=== PATIENT | female | born 1935 | race Caucasian/White ===

== ENCOUNTER 2019-08-28 11:49 | Outpatient (CLI) | payer MEDICARE, SELFPAY ==
[2019-08-28 12:29] LABS: Hematocrit 33.1 % (37.0-47.0); Hemoglobin 10.2 g/dL (12.0-15.0); Mean Corpuscular HGB Conc 30.8 g/dl (32-36); Mean Corpuscular Hemoglobin 28.3 pg (26-34); Mean Corpuscular Volume 91.9 fl (80-100); Mean Platelet Volume 10.2 fl (7.4-10.4); Platelet Count Result 283 k/mm3 (150-375); Red Cell Distribution Width 25.2 % (11.5-14.5); White Blood Count 8.5 K/mm3 (4.5-10.0)
[2019-08-28 12:33] LABS: Add Urine Microscopic? YES; Appearance Urine Clear (Clear); Bacteria Urine Trace /hpf; Bilirubin Urine Negative (Negative); Blood Urine Negative (Negative); Color Urine Yellow (Yellow); Glucose Urine UA Negative (Negative); Ketones Urine Negative (Negative); Leukocyte Esterase Ur Trace LEU/UL (NEGATIVE); Mucus Urine Rare /lpf; Nitrate Urine Negative (Negative); Protein Urine Negative (Negative); Specific Grav Ur 1.011 (1.001-1.035); Squamous Epithelial Cell Urine Many /hpf (Few); Urobilinogen Urine Negative mg/dL (<2.0)
[2019-08-28 12:48] LABS: Alanine Aminotransferase 15 U/L (4-35); Albumin Level 4.2 g/dL (3.5-5.1); Alkaline Phosphatase 111 U/L (38-126); Aspartate Amino Transferase 30 U/L (14-36); Bilirubin,Total 0.9 mg/dL (0.2-1.3); Blood Urea Nitrogen 47 mg/dL (7-17); Calcium 8.4 mg/dL (8.4-10.2); Carbon Dioxide 28 mmol/L (22-30); Chloride 98 mmol/L (98-107); Estimated Glomerular Filt Rate 24; Glucose 121 mg/dL (65-105); Potassium 4.3 mmol/L (3.4-5.0); Sodium 140 mmol/L (137-145)
[2019-08-28 12:55] LABS: NT Pro B Type Natriuretic Pept 7210 PG/ML (5-100)
[2019-08-28 15:27] LABS: Hemoglobin A1C 7.1 % (<5.7)
== END 2019-08-28 11:50 | disposition home or self-care (01) ==
PROVIDERS: PCP Internal Medicine; Visit Provider Internal Medicine
DX: R53.83 Other fatigue (principal); I50.9 Heart failure, unspecified; E11.9 Type 2 diabetes mellitus without complications; M25.519 Pain in unspecified shoulder; N39.0 Urinary tract infection, site not specified
CPT/HCPCS: 36415; 80053; 81001; 83036; 83880; 84443; 85027

== ENCOUNTER 2019-10-19 13:25 | Outpatient (CLI) | payer MEDICARE, SELFPAY ==
[2019-10-19 14:21] LABS: Blood Urea Nitrogen 87 mg/dL (7-17); Calcium 9.1 mg/dL (8.4-10.2); Carbon Dioxide 27 mmol/L (22-30); Chloride 99 mmol/L (98-107); Estimated Glomerular Filt Rate 14; Glucose 127 mg/dL (65-105); Potassium 5.6 mmol/L (3.4-5.0); Sodium 138 mmol/L (137-145)
== END 2019-10-19 13:26 | disposition home or self-care (01) ==
LOC: ANHLAB 13:33
PROVIDERS: PCP Internal Medicine; Visit Provider Internal Medicine Cardiovascular Disease
DX: I50.22 Chronic systolic (congestive) heart failure (principal); I42.8 Other cardiomyopathies
CPT/HCPCS: 36415; 80048

== ENCOUNTER 2019-10-28 10:54 | Outpatient (CLI) | payer MEDICARE, SELFPAY ==
[2019-10-28 11:27] LABS: Blood Urea Nitrogen 64 mg/dL (7-17); Calcium 8.4 mg/dL (8.4-10.2); Carbon Dioxide 31 mmol/L (22-30); Chloride 100 mmol/L (98-107); Estimated Glomerular Filt Rate 15; Glucose 136 mg/dL (65-105); Potassium 4.3 mmol/L (3.4-5.0); Sodium 139 mmol/L (137-145)
== END 2019-10-28 10:55 | disposition home or self-care (01) ==
PROVIDERS: PCP Internal Medicine; Visit Provider Nurse Practitioner Adult Health
DX: I50.22 Chronic systolic (congestive) heart failure (principal); E11.22 Type 2 diabetes mellitus with diabetic chronic kidney disease; N18.3 Chronic kidney disease, stage 3 (moderate)
CPT/HCPCS: 36415; 80048

== ENCOUNTER 2019-11-09 11:25 | Inpatient (IN) | payer MEDICARE, SELFPAY ==
--- NOTE | ~2019-11-09 | XR_ITS ---
XR abdomen/kub 1V DATE: 11/14/2019 19:30 INDICATION: Abdominal pain TECHNIQUE: Portable supine AP views on 11/14/2019 at 1924 hours COMPARISON: 11/12/2019 KUB 11/11/2019 small bowel follow-through FINDINGS: There is minimal residual contrast material in some descending and sigmoid colon diverticul a and in the rectum. No bowel dilatation is evident. The psoas shadows are intact. No visceromegaly is detected. Abdominal aortic calcification and iliac arterial calcifications. IMPRESSION: Nonspecific abdomen Reviewed, dictated and finalized at [facility]. Reviewed, dictated and finalized at location [facility]. IMPRESSION: Nonspecific abdomen
--- NOTE | ~2019-11-09 | CT_ITS ---
EXAMINATION: CT abdomen pelvis wo con DATE: 11/09/2019 12:17 INDICATION: Abdominal pain, nausea, vomiting. History of bowel obstruction. TECHNIQUE: Computed tomography (CT) of the abdomen and pelvis was performed without intravenous contr ast. Automated exposure control and iterative reconstruction technique were employed. Exam dose: 713 .98 mGy-cm total exam DLP. COMPARISON: 05/25/2019 CT abdomen pelvis noncontrast examination FINDINGS: Cardiomegaly. No pericardial effusion. Pacemaker leads are noted in the coronary sinus and right atrium and ventricle. Moderate right and small left pleural effusions. There are mild bibasilar infiltrates and/or atelectasis. Sludge and/or stones in the dependent aspect of the gallbladder. Gallbladder wall thickness appears w ithin normal upper limits normal range. There is surface nodularity of the liver, consistent with cirrhosis. No hepatic, splenic, pancreatic, and adrenal space-occupying mass lesion is evident. There is an approximately 2.6 cm exophytic proba ble left renal cyst. Another 12 mm partially exophytic left renal cyst is noted. Probable 6 mm right renal cyst. Additional cysts are not excluded on this limited noncontrast examination. There is surfa ce nodularity of both kidneys. Approximately 2 small nonobstructing upper pole left renal calcified s tones. No ureteral calculus or hydroureteronephrosis is evident. The urinary bladder appears unremark able. There is extensive atherosclerotic calcification of the abdominal aorta and both renal arteries as we ll as some mesenteric and celiac artery calcifications, iliac and femoral artery calcifications. Mild diverticulosis of the left colon; no CT evidence of diverticulitis. There are air-fluid levels of the stomach and numerous small bowel air-fluid levels as well as mild s mall bowel dilatation up to approximately 3.1 mm diameter into the distal small bowel. There is fecal ized content of the distal small bowel proximal to the likely chronic partial small bowel obstruction . The distal and terminal ileum however are decompressed. Findings suggest partial distal small bowel obstruction. No evidence of intraperitoneal free air. Diffuse idiopathic skeletal hyperostosis of the thoracic spine. There is degenerative disease of lumb ar spine, most pronounced at L5-S1, moderately prominent at L3-4. There is degenerative change at the apophyseal joints with associated grade 1 anterolisthesis at L4-5. IMPRESSION: Likely chronic partial distal small bowel obstruction Sludge and/or stones in the gallbladder is sclerosis Renal cysts Mild diverticulosis of left colon Reviewed, dictated and finalized at [facility]. Reviewed, dictated and finalized at location [facility].
--- NOTE | ~2019-11-09 | XR_ITS ---
XR small bowel follow through DATE: 11/11/2019 11:55 INDICATION: Partial small bowel obstruction TECHNIQUE: Serial images of the abdomen after administration of barium through existing NG tube 4 minutes fluoroscopy time DAP: 33 14 images COMPARISON: 11/09/[address] abdomen pelvis FINDINGS: Contrast material reaches the colon by one hour 30 minutes. Spot radiograph of the terminal ileum reveal no abnormality. The proximal and distal small bowel is of normal caliber. There is mild relative dilatation of the mid small bowel which may be due to mild partial obstruction. No intralum inal mass lesion or ulceration or diverticula of the small bowel is evident. No mucosal fold thickeni ng is evident. IMPRESSION: Mild nonspecific mid to distal partial small bowel obstruction Reviewed, dictated and finalized at [facility]. Reviewed, dictated and finalized at location [facility].
--- NOTE | ~2019-11-09 | XR_ITS ---
EXAMINATION: XR chest 2V DATE: 11/12/2019 10:40 INDICATION: Shortness of breath and hypoxia TECHNIQUE: AP and lateral views of the chest are obtained. COMPARISON: 05/06/2019 FINDINGS: There are airspace opacities of the lower lobes. Small pleural effusions are present. Stabl e cardiomegaly is noted. There is no pneumothorax. A triple lead cardiac pacemaker of the left chest wall ends with leads in expected locations. There are healed bilateral proximal humerus fractures. A small amount of enteric contrast material is seen in the bowel. IMPRESSION: 1. Airspace opacities of the lower lobes, consistent with atelectasis versus pneumonia. 2. Small pleural effusions. 3. Cardiomegaly. Reviewed, dictated and finalized at location [facility]. IMPRESSION: 1. Airspace opacities of the lower lobes, consistent with atelectasis versus pn eumonia. 2. Small pleural effusions. 3. Cardiomegaly.
--- NOTE | ~2019-11-09 | XR_ITS ---
EXAMINATION: XR abdomen obstructive series DATE: 11/12/2019 13:14 INDICATION: Recent small bowel obstruction presenting with recurrent abdominal bloating TECHNIQUE: Frontal supine and upright views of the abdomen were obtained. COMPARISON: 11/11/2019 FINDINGS: Residual oral contrast material is seen scattered throughout the normal caliber colon. Small amount o f gas within ana few normal caliber loops of small bowel in the midabdomen. No dilated gas-filled lo ops of bowel. No free intraperitoneal gas. Interval increase in airspace opacities in the bilateral l ower lung zones. Cardiomegaly. Three lead pacemaker/AICD seen with leads projecting over the expected locations of the right atrial appendage, apex of the right ventricle and overlying the left ventricl e likely having traversed the coronary sinus. Mild lumbar levocurvature with moderate spondylosis. IMPRESSION: 1. No free intraperitoneal gas or dilated gas-filled loops of bowel to suggest obstruction. 2. Increasing opacities in the bilateral lower lung zones consistent with small bilateral pleural eff usions and associated atelectasis and/or pneumonia. Reviewed, dictated and finalized at location A. IMPRESSION: 1. No free intraperitoneal gas or dilated gas-filled loops of bowel to suggest obstruction. 2. Increasing opacities in the bilateral lower lung zones consistent with small bilateral pleural effusions and associated atelectasis and/or pneumonia.
--- NOTE | ~2019-11-09 | XR_ITS ---
EXAMINATION: XR abdomen obstructive series DATE: 11/15/2019 08:15 INDICATION: Abdominal distention TECHNIQUE: Upright and supine views of the abdomen were obtained. COMPARISON: 11/14/2019 FINDINGS: Enteric contrast material is seen in the rectum and also opacifies several colonic divertic barron in the sigmoid colon. There is no free intraperitoneal gas. No dilated loops of bowel are seen. T here are airspace opacities of the visualized lung bases. Cardiomegaly is noted. There is a triple le ad pacemaker. IMPRESSION: 1. Nonobstructive bowel gas pattern. 2. Bibasilar airspace opacities, consistent with atelectasis and/or pneumonia. Reviewed, dictated and finalized at location A.
--- NOTE | ~2019-11-09 | XR_ITS ---
EXAMINATION: XR abdomen obstructive series DATE: 11/10/2019 06:17 INDICATION: Small bowel obstruction TECHNIQUE: Frontal supine and upright views of the abdomen were obtained. COMPARISON: 11/09/2019 FINDINGS: Nasogastric tube tip in proximal side port in the body of the stomach. Relative paucity of bowel gas with small amount of gas seen within a couple nondilated loops of small bowel in the midabdomen. No f ree intraperitoneal gas. Small right pleural effusion. Mild atelectasis at the lung bases. Cardiomega ly. Three lead pacemaker/AICD seen with leads projecting over the expected locations of the right atr ial appendage, apex of the right ventricle and overlying the left ventricle likely having traversed t he coronary sinus. Mild lumbar levocurvature with moderate spondylosis. IMPRESSION: 1. No dilated gas-filled loops of bowel to suggest obstruction although sensitivity is decreased by relative paucity of bowel gas. 2. Small right pleural effusion and mild bibasilar atelectasis. Reviewed, dictated and finalized at location A. IMPRESSION: 1. No dilated gas-filled loops of bowel to suggest obstruction although sensit ivity is decreased by relative paucity of bowel gas. 2. Small right pleural effusion and mild bibasilar atelectasis.
--- NOTE | ~2019-11-09 | XR_ITS ---
EXAMINATION: XR abdomen obstructive series DATE: 11/11/2019 06:06 INDICATION: Partial small bowel obstruction TECHNIQUE: Frontal supine and upright views of the abdomen were obtained. COMPARISON: 11/10/2019 FINDINGS: Nasogastric tube tip in proximal side port in the body of the stomach. No dilated gas-filled loops of bowel. No free intraperitoneal gas. Opacities in the bilateral lower lung zones. Cardiomegaly. Thre e lead pacemaker/AICD seen with leads projecting over the expected locations of the right atrial appe ndage, apex of the right ventricle and overlying the left ventricle likely having traversed the coron gayatri sinus. Mild lumbar levocurvature with mild to moderate spondylosis. IMPRESSION: 1. No free intraperitoneal gas or dilated gas-filled loops of bowel to suggest obstruction. 2. Opacities at the bilateral lower lung zones likely related to small bilateral pleural effusions an d associated atelectasis although pneumonia or mild pulmonary edema not excludable. 3. Cardiomegaly. Reviewed, dictated and finalized at location A. IMPRESSION: 1. No free intraperitoneal gas or dilated gas-filled loops of bowel to suggest obstruction. 2. Opacities at the bilateral lower lung zones likely related to small bilatera l pleural effusions and associated atelectasis although pneumonia or mild pulmo nary edema not excludable. 3. Cardiomegaly.
--- NOTE | ~2019-11-09 | XR_ITS ---
XR abdomen NG/feed tube insert DATE: 11/09/2019 14:08 INDICATION: NG tube placement TECHNIQUE: Portable AP view on 11/09/2019 1408 hours COMPARISON: None FINDINGS: An NG tube is present, the proximal port approximately 1.5 cm distal to the diaphragmatic h iatus, the distal tip of the tube overlying the upper body of the stomach. Triple lead left-sided pacemaker device. Cardiomegaly. Aortic calcification. IMPRESSION: NG tube in the upper body of stomach Reviewed, dictated and finalized at [facility]. Reviewed, dictated and finalized at location A.
--- NOTE | 2019-11-09 11:30 | ED.GENADULT ---
HPI - General Adult General Chief complaint: Nausea/Vomiting/Diarrhea Stated complaint: N/V Time Seen by Provider: 11/09/19 11:30 Source: patient and family History of Present Illness HPI narrative: Patient is an 84-year-old female who presents for evaluation of abdominal pain. Patient reports onset of upper abdominal pain overnight. Pain has been cramping, sharp in nature without radiation to the back or chest. She reports associated nausea, vomiting, no diarrhea. Patient states she did have a soft bowel movement this morning. Patient feels somewhat bloated and distended. She denies fever or chills. No urinary symptoms. No recent sick contacts. No rashes. Patient with history of bowel obstruction past May 2019 for [address] she [address] Dr. Rees for. She never required surgery. They thought the bowel obstruction at that point was due to adhesions. Related Data Home Medications Medication Instructions Recorded Confirmed colchicine 0.6 mg PO DAILY 05/25/19 05/25/19 cyclobenzaprine 10 mg PO HS 05/25/19 05/25/19 escitalopram oxalate 10 mg PO DAILY 05/25/19 05/25/19 febuxostat [Uloric] 80 mg PO DAILY 05/25/19 05/25/19 furosemide 60 mg PO DAILY 05/25/19 05/25/19 gabapentin 300 mg PO TID 05/25/19 05/25/19 montelukast 10 mg PO DAILY 05/25/19 05/25/19 spironolactone 25 mg PO DAILY 05/25/19 05/25/19 trazodone 100 mg PO HS 05/25/19 05/25/19 Allergies Allergy/AdvReac Type Severity Reaction Status Date / Time gadobenic acid Allergy Severe Hives Verified 11/09/19 14:24 [From contrast - MRI] iohexol Allergy Severe Hives Verified 11/09/19 14:24 [From contrast - CT, X-RAY] Penicillins Allergy Severe HIVES Verified 11/09/19 11:55 Sulfa (Sulfonamide Allergy Severe HIVES/RASH/ Verified 11/09/19 11:55 Antibiotics) ITCHY tetanus and diphtheria Allergy Severe Hives Verified 11/09/19 14:25 toxoids Review of Systems Review of Systems: Narrative: CONSTITUTIONAL: Denies fever, chills, or sweats. EYES: Denies visual changes, redness, or discharge. ENT: Denies rhinorrhea, congestion, sore throat, or otalgia. CARDIOVASCULAR: Denies chest pain, palpitations, or edema. RESPIRATORY: Denies cough or dyspnea. GASTROINTESTINAL: Reports abdominal pain, nausea, vomiting GENITOURINARY: Denies dysuria or hematuria. SKIN: Denies rash or itching. MUSCULOSKELETAL: Denies back pain, joint pain, or myalgia. NEUROLOGIC: Denies headache, numbness, or weakness. [facility] Past Medical History Medical History Acoustic neuroma With conductive hearing loss. Anemia of chronic disease Asthma CHF (congestive heart failure) Mixed systolic and diastolic congestive heart failure. Previous ejection fraction of 30 to 35%. Chronic kidney disease, stage 3 Now likely CKD 4. Baseline creatinine appears to be around 2.0. CVA (cerebral vascular accident) In 1989. 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 Hemoglobin A1c is 7.2 today. Kidney stones MRSA (methicillin resistant Staphylococcus aureus) septicemia Obstructive sleep apnea No longer requiring CPAP after losing nearly 150 pounds. Paroxysmal atrial fibrillation Not on long-term anticoagulation. Peripheral neuropathy Psoriasis Suspected sleep apnea Patient refuses sleep study, however. UTI (urinary tract infection) Surgical History Surgical History AICD (automatic cardioverter/defibrillator) present With pulse generator change in March 2016. H/O cardiac catheterization H/O: hysterectomy Vaginal hysterectomy with bladder suspension in 1991. 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 History of cataract surgery History of partial hysterectomy Right adnexal mass removed in her 30's. Hx of cataract surgery S/P excision of acoustic neuroma Left-sided, done in 1990.
[2019-11-09 11:46] VITALS: BP 103/62; PULSE 80; RESP 18; TEMP 36.6; O2SAT 93
[2019-11-09 11:56] LABS: Glucose Point of Care 162 (65-105)
[2019-11-09 11:59] LABS: Basophils Percent Auto 0.3 % (0.2-1.2); Eosinophils Percent Auto 0.3 % (0-4.4); Hematocrit 36.1 % (37.0-47.0); Hemoglobin 11.1 g/dL (12.0-15.0); Immature Granulocyte Absolute 0.05 K/mm3 (0.00-0.031); Immature Granulocyte Percent A 0.5 % (0-0.5); Lymphocytes Absolute Auto 0.64 K/mm3 (0.9-3.2); Lymphocytes Percent Auto 6.8 % (18.3-44.2); Mean Corpuscular HGB Conc 30.7 g/dl (32-36); Mean Corpuscular Hemoglobin 27.9 pg (26-34); Mean Corpuscular Volume 90.7 fl (80-100); Mean Platelet Volume 10.5 fl (7.4-10.4); Monocytes Absolute Auto 0.5 K/mm3 (0.1-0.6); Monocytes Percent Auto 4.9 % (2.6-8.5); Neutrophils Absolute Auto 8.2 K/mm3 (1.3-6.7); Neutrophils Percent Auto 87.2 % (45.5-73.1); Platelet Count Result 242 k/mm3 (150-375); Red Blood Count 3.98 M/mm3 (4.2-5.4); Red Cell Distribution Width 24.6 % (11.5-14.5); White Blood Count 9.4 K/mm3 (4.5-10.0)
[2019-11-09] MEDS: MORPHINE SULFATE 4 MG/ML INJ 2 MG IV PUSH (12:21)
[2019-11-09] MEDS: ONDANSETRON INJ 4 MG/2 ML VIAL IV PUSH ×2 (12:21→18:14)
[2019-11-09 12:24] LABS: Lactic Acid Reflex 1.2 mmol/L (0.7-2.1)
[2019-11-09 12:24] LABS: Alanine Aminotransferase 15 U/L (4-35); Albumin Level 4.5 g/dL (3.5-5.1); Alkaline Phosphatase 114 U/L (38-126); Aspartate Amino Transferase 28 U/L (14-36); Bilirubin,Total 1.2 mg/dL (0.2-1.3); Blood Urea Nitrogen 47 mg/dL (7-17); Calcium 8.9 mg/dL (8.4-10.2); Carbon Dioxide 33 mmol/L (22-30); Chloride 97 mmol/L (98-107); Estimated CRCL calculation 13 ml/min; Estimated Glomerular Filt Rate 18; Glucose 174 mg/dL (65-105); Lipase 25 U/L (23-300); Potassium 4.7 mmol/L (3.4-5.0); Sodium 138 mmol/L (137-145)
[2019-11-09] MEDS: SODIUM CHLORIDE 0.9% IV 500 ML 999 ML IV CONT (12:25)
[2019-11-09 13:03] LABS: Add Urine Microscopic? YES; Appearance Urine Clear (Clear); Bilirubin Urine Negative (Negative); Blood Urine 1+ (Negative); Color Urine Yellow (Yellow); Glucose Urine UA Negative (Negative); Ketones Urine Negative (Negative); Leukocyte Esterase Ur Negative LEU/UL (Negative); Mucus Urine Rare /lpf; Nitrate Urine Negative (Negative); Protein Urine Negative (Negative); RBC Urine 0-2 /hpf (0-2); Specific Grav Ur 1.014 (1.001-1.035); Squamous Epithelial Cell Urine Many /hpf (Few); Urobilinogen Urine Negative mg/dL (<2.0); WBC Urine 0-3 /hpf
[2019-11-09] MEDS: SODIUM CHLORIDE 0.9% IV 1,000 ML 999 ML IV CONT (13:16)
[2019-11-09 13:35] VITALS: O2SAT 100
[2019-11-09] MEDS: LORAZEPAM INJ 2 MG/ML VIAL 0.5 MG IV PUSH (14:50)
[2019-11-09 15:45] VITALS: BP 110/44; PULSE 80; RESP 16; O2SAT 99
[2019-11-09] MEDS: SODIUM CHLORIDE 0.9% IV 1,000 ML 125 ML IV CONT (16:06)
--- NOTE | 2019-11-09 16:12 | PM.CNGS ---
Assessment and Plan Assessment and plan (1) Small bowel obstruction: Code(s): K56.609 - Unspecified intestinal obstruction, unspecified as to partial versus complete obstruction Status: Acute Assessment and Plan: CT scan reviewed and discussed with the patient in detail. She has evidence of a partial small bowel obstruction. She had a similar episode in May of 2019 that resolved with conservative treatment. She does have a history of abdominal surgeries and this is likely caused by adhesions. Due to the patient's age and multiple co-morbidities, she is a high risk surgical candidate. We will plan to continue with conservative treatment at this time to see if this will resolve. Continue NG tube decompression, IV fluids, bowel rest, analgesics, and antiemetics. If this does not improve with conservative measures, then the patient may require exploratory surgery. I discussed the treatment plan with the patient and answered all questions. We will continue to follow the patient with serial abdominal exams and imaging. I discussed the patient's case and plan of care with Dr. Parnell, who will be seeing the patient separately. Thank you for allowing me to see the patient in consultation and we will continue to follow along with you. (2) IDDM (insulin dependent diabetes mellitus): Code(s): E11.9 - Type 2 diabetes mellitus without complications; Z79.4 - custodial (current) use of insulin Status: Chronic (3) Chronic kidney disease, stage 3: Code(s): N18.3 - Chronic kidney disease, stage 3 (moderate) Status: Chronic (4) Anemia of chronic disease: Code(s): D63.8 - Anemia in other chronic diseases classified elsewhere Status: Acute (5) Cirrhosis: Code(s): K74.60 - Unspecified cirrhosis of liver Status: Chronic (6) CHF (congestive heart failure): Code(s): I50.9 - Heart failure, unspecified Status: Chronic (7) Paroxysmal atrial fibrillation: Code(s): I48.0 - Paroxysmal atrial fibrillation Status: Chronic (8) Obstructive sleep apnea: Code(s): G47.33 - Obstructive sleep apnea (adult) (pediatric) Status: Chronic History of Present Illness Consult details Consult date: 11/09/19 Reason for consult: other (Partial small bowel obstruction) Requesting physician: July Langston MD Narrative: This is an 84-year-old female who presented to the emergency room today with complaints of abdominal pain, nausea, and vomiting. She has a history of multiple medical problems including,but not limited to congestive heart failure, chronic kidney disease, insulin-dependent diabetes mellitus, obstructive sleep apnea, asthma, anemia, history of stroke, and atrial fibrillation with no current chronic anticoagulation. She was last admitted in May of 2019 for a small bowel obstruction that was thought to be due to adhesions. She was treated conservatively with NG tube decompression and improved. She had a Gastrografin small bowel follow through on 05/28/19 that showed a normal transit to the colon. The patient was eventually discharged home after advancing on a diet and tolerating. She denies any issues since her discharge until this acute episode. The patient reports her recent symptoms started suddenly last night at bedtime when she developed lower abdominal pain. She then developed nausea and vomiting. She reports that after the vomiting started, her abdominal pain became increasingly more severe and was unrelenting. She reports the abdominal pain also became more generalized over her entire abdomen. She does report that for the past 3 days she has felt very bloated but was not having any other symptoms. The patient reports that due to her unrelenting symptoms, she decided to present to the ED today for further evaluation. CT scan of the abdomen and pelvis showed a distal partial small bowel obstruction, gallbladder sludge without other abnormalities of the gallbladder,
--- NOTE | 2019-11-09 16:16 | ADMGEN ---
This patient, Shelli Pereyra, was admitted to 2 Medical Room 257-01. Patient/family oriented to hospital policies and general routines including ID bracelet, bed and alarms, visiting hours, pain management, procedures, bathroom and other care routines, personal items, smoking policy, room service/diet, and visiting hours. Valuables list has been completed. Information on how to activate the Rapid Response Team has been discussed. Patient/Family are encouraged to report perceived risks to care and to ask questions if they do not understand what they are told or what they should do.
--- NOTE | 2019-11-09 16:46 | PC.NURSE ---
Called and clarified medication list with [facility] and patient's daughter Pili Tomlinson. Patient reports some changes in medications by Dr. Malave, but unable to recall the specifics of the changes.
--- NOTE | 2019-11-09 18:00 | PM.IMHP ---
H&P: HPI History of Present Illness Chief complaint: Abdominal pain, nausea, and vomiting. Narrative: Shelli Pereyra is an 84-year-old female with history of small-bowel obstructions who presented to the emergency department earlier this morning for evaluation of abdominal pain, nausea, and vomiting. She developed sudden onset of abdominal pain in the patient sitter hours today, which she describes as a ?intense? pain mainly in the right lower and mid quadrants. She gives no significant alleviating factors. At the time of my evaluation, she rates her pain 8/10. Not long thereafter, she developed nausea and vomiting and reports that her abdomen was distended ?like a watermelon.? She passed 2 soft stools this morning, and is currently feeling as though she may need to have another bowel movement. Additionally, she mentions feeling a bit short of breath earlier today, which sheassumed was due to the abdominal distension. Imaging today shows evidence of a partial small-bowel obstruction. NG tube has been placed for decompression and she will of course be on bowel rest with IV fluids, antiemetics, and analgesics available as needed. Hopefully this will resolve as her previous obstruction did in May 2019. Review of Systems Review of Systems: Narrative: Twelve systems were reviewed with pertinent positives and negatives as per HPI. No fever, chills, or sweats. No recent cold or flu symptoms. She tells me that she has a chronic cough, which is unchanged. She denies blood in mucus in the stool. No hematemesis. No chest pain. She was short of breath earlier when her abdomen was significantly distended, but that has improved with NG tube placement. She has a history of sleep apnea but loss 150 pounds when she was sick from MRSA septicemia and no longer requires treatment for such. She believes her diabetes is fairly well controlled with a hemoglobin A1c of 7.2% in May 2019. Except as documented, all other systems were reviewed and are negative. [facility] Past Medical History Medical History (Updated 11/09/19 @ 20:15 by Anjali Weiss PA-C) Acoustic neuroma With conductive hearing loss. Anemia of chronic disease Asthma CHF (congestive heart failure) Mixed systolic and diastolic congestive heart failure. Previous ejection fraction of 30 to 35%. Chronic kidney disease, stage 4 (severe) Baseline creatinine varies between 1.90 and 2.90. Cirrhosis CVA (cerebral vascular accident) In 1989. 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 Kidney stones MRSA (methicillin resistant Staphylococcus aureus) septicemia Obstructive sleep apnea No longer requiring CPAP after losing nearly 150 pounds. Paroxysmal atrial fibrillation Not on long-term anticoagulation. Paroxysmal atrial fibrillation Peripheral neuropathy Psoriasis UTI (urinary tract infection) Surgical History Surgical History AICD (automatic cardioverter/defibrillator) present With pulse generator change in March 2016. H/O cardiac catheterization H/O: hysterectomy Vaginal hysterectomy with bladder suspension in 1991. 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 History of cataract surgery History of partial hysterectomy Right adnexal mass removed in her 30's. Hx of cataract surgery S/P excision of acoustic neuroma Left-sided, done in 1990. Family History Family History Father Heart disease Mother Heart disease Sibling Brain tumor Daughter Multiple sclerosis Social History Social History Social History: Mrs. Pereyra is . She lives in [place] with her daughter, Pili, and son-in-law. She designates her daughter, Pili Tomlinson, as her surrogate de
[2019-11-09] MEDS: MORPHINE SULFATE 2 MG/ML INJ IV PUSH (19:43)
[2019-11-09 20:00] VITALS: PULSE 80; RESP 16; O2SAT 96
[2019-11-09 20:54] VITALS: O2SAT 96
[2019-11-09 22:00] VITALS: BP 117/57; PULSE 80; RESP 18; TEMP 36.1; O2SAT 99
[2019-11-09] MEDS: MAGNESIUM HYDROXIDE SUSP 30 ML UDC FEED TUBE (22:06)
[2019-11-10] VITALS (8 sets, daily range): BP systolic 101–115; BP diastolic 42–51; PULSE 78–84; RESP 18–20; TEMP 36.1–36.5; O2SAT 80–97
[2019-11-10 00:01] LABS: Glucose Point of Care 139 (65-105)
[2019-11-10] MEDS: SODIUM CHLORIDE 0.9% IV 1,000 ML 125 ML IV CONT (00:44)
[2019-11-10] MEDS: MORPHINE SULFATE 2 MG/ML INJ IV PUSH ×2 (02:28→09:53)
[2019-11-10 06:29] LABS: Hematocrit 34.5 % (37.0-47.0); Hemoglobin 10.3 g/dL (12.0-15.0); Mean Corpuscular HGB Conc 29.9 g/dl (32-36); Mean Corpuscular Volume 93.8 fl (80-100); Mean Platelet Volume 10.8 fl (7.4-10.4); Platelet Count Result 240 k/mm3 (150-375); Red Blood Count 3.68 M/mm3 (4.2-5.4); Red Cell Distribution Width 24.6 % (11.5-14.5); White Blood Count 10.1 K/mm3 (4.5-10.0)
[2019-11-10 06:37] LABS: Alanine Aminotransferase 12 U/L (4-35); Albumin Level 3.8 g/dL (3.5-5.1); Alkaline Phosphatase 90 U/L (38-126); Aspartate Amino Transferase 22 U/L (14-36); Bilirubin,Total 0.9 mg/dL (0.2-1.3); Blood Urea Nitrogen 45 mg/dL (7-17); Carbon Dioxide 28 mmol/L (22-30); Chloride 103 mmol/L (98-107); Estimated CRCL calculation 16 ml/min; Estimated Glomerular Filt Rate 19; Glucose 148 mg/dL (65-105); Magnesium 2.6 mg/dL (1.6-2.3); Phosphorus 5.8 mg/dL (2.5-4.5); Potassium 4.5 mmol/L (3.4-5.0); Sodium 139 mmol/L (137-145)
[2019-11-10 06:51] LABS: Digoxin 1.5 ng/mL (0.8-2.0)
[2019-11-10] MEDS: ONDANSETRON INJ 4 MG/2 ML VIAL IV PUSH (08:06)
[2019-11-10] MEDS: PANTOPRAZOLE SODIUM IV 40 MG VIAL IV PUSH (08:06)
--- NOTE | 2019-11-10 09:04 | PM.PNGS ---
Progress Note: A&P Assessment and Plan (1) Partial small bowel obstruction: Onset Date: ~11/08/19 Code(s): K56.600 - Partial intestinal obstruction, unspecified as to cause Status: Acute Assessment and Plan: Today's x-ray improved. Will try clamping routine and give patient Dulcolax suppository. If progresses well will consider NG removal tomorrow if x-ray okay. If nausea persists may need to repeat small-bowel follow-through with Gastrografin. (2) Paroxysmal atrial fibrillation: Onset Date: Unknown Code(s): I48.0 - Paroxysmal atrial fibrillation Status: Acute Assessment and Plan: Cardiology following as an outpatient. Patient stated to me today that they are expecting the battery in her pacemaker/AID to run out sometime in the next year. (3) Chronic kidney disease, stage 4 (severe): Onset Date: Unknown Code(s): N18.4 - Chronic kidney disease, stage 4 (severe) Status: Acute Assessment and Plan: Labs being followed (4) Anemia of chronic disease: Onset Date: Unknown Code(s): D63.8 - Anemia in other chronic diseases classified elsewhere Status: Acute Assessment and Plan: Labs being followed (5) IDDM (insulin dependent diabetes mellitus): Onset Date: Unknown Code(s): E11.9 - Type 2 diabetes mellitus without complications; Z79.4 - [facility] (current) use of insulin Status: Chronic Assessment and Plan: Hospitalist service following this problem. Additional Plan Will need most meds IV for today. Hopefully will start diet tomorrow if improves. Subjective Subjective Date/Time Seen: 11/10/19 09:04 Patient in bed when I saw her. Complaining of nausea. States after the nausea its then she gets the mild discomfort in her right mid and upper quadrant of the abdomen. Patient and nurse report no bowel movements overnight. Patient willing to get up and walk but states that she has been weak and using a walker. Review of Systems Constitutional: Constitutional: Reports no additional constitutional complaints ENT: Reports other (Mucous Membranes moist.) Cardiovascular: Cardiovascular: Denies dyspnea Respiratory: Respiratory: Denies pain on inspiration and Denies dyspnea Musculoskeletal: Musculoskeletal: Reports other (No calf swelling or edema) Integumentary/Breasts: Skin/Breast: Reports system reviewed and no additional complaints, except as docu Exam Const: General: cooperative, no acute distress, alert and awake Orientation/consciousness: patient oriented x3 HENMT: Mouth: Yes moist mucous membranes Neck: Neck: normal visual inspection Chest: Chest palpation & inspection: normal inspection of the chest Resp: Effort & Inspection: normal respiratory effort Auscultation: clear to auscultation bilaterally Cardio: Jugular venous distension: no JVD Rate: regular rate Rhythm: regular rhythm GI: Inspection: normal to inspection and scar (Low transverse from previous Rt. oophorectomy) GI Palp: No abdominal tenderness and Yes Soft to palpation Auscultation: normal bowel sounds Rectal Exam: deferred Neuro: General: patient oriented x3 and moves all extremities Speech: normal speech Extrem: General: normal exam except as noted Psych: Mental Status: mental status grossly normal Speech and movement: Normal speech and movement present Affect: normal affect Thought content: Yes Normal thought content present Objective Data Vital Signs Vital Signs: Vital Signs - 24 hr 11/09/19 11:46 11/09/19 13:35 11/09/19 15:45 Temperature 36.6 C Pulse Rate 80 80 Respiratory Rate 18 16 Blood Pressure 103/62 110/44 L Pulse Oximetry 93 100 99 11/09/19 20:00 11/09/19 20:54 11/09/19 22:00 Temperature 36.1 C L Pulse Rate 80 80 Respiratory Rate 16 18 Blood Pressure 117/57 L Pulse Oximetry 96 96 99 11/10/19 05:58 Temperature 36.1 C L Pulse Rate 84 Respiratory Rate 20 Blood Pressure 114
[2019-11-10 09:08] LABS: Glucose Point of Care 147 (65-105)
[2019-11-10] MEDS: MAGNESIUM HYDROXIDE SUSP 30 ML UDC FEED TUBE (09:30)
[2019-11-10] MEDS: BISACODYL 10 MG SUPPOSITORY RECTAL (09:30)
[2019-11-10] MEDS: SODIUM CHLORIDE 0.9% IV 1,000 ML 100 ML IV CONT ×2 (09:30→20:52)
--- NOTE | 2019-11-10 10:24 | PM.IMPN ---
Progress Note: A&P Assessment and Plan (1) Partial small bowel obstruction: Onset Date: ~11/08/19 Code(s): K56.600 - Partial intestinal obstruction, unspecified as to cause Status: Acute Assessment and Plan: History of bowel obstructions in the past, last hospitalization May 2019 improved with conservative therapy. Management per general surgery - appreciate input. She remains NPO today with NG clamping. Continue supportive care with antiemetics and pain control. (2) IDDM (insulin dependent diabetes mellitus): Onset Date: Unknown Code(s): E11.9 - Type 2 diabetes mellitus without complications; Z79.4 - [facility] (current) use of insulin Status: Chronic Assessment and Plan: Hemoglobin A1c was 7.2% in May 2019. Insulin held due to NPO status. Monitor with Accu-Cheks and cover with SSI. (3) Chronic kidney disease, stage 4 (severe): Onset Date: Unknown Code(s): N18.4 - Chronic kidney disease, stage 4 (severe) Status: Chronic Assessment and Plan: Renal function has varied over the last 6 month, appears stable. Continue IV hydration and monitor renal function. Avoid nephrotoxic agents. (4) Paroxysmal atrial fibrillation: Onset Date: Unknown Code(s): I48.0 - Paroxysmal atrial fibrillation Status: Chronic Assessment and Plan: Regular rhythm on auscultation. On digoxin at home which is currently held due to NPO status. With surgery's plan to resume diet possibly tomorrow, will likely be able to reinitiate digoxin therapy tomorrow. Will monitor. Subjective Date/time seen: 11/10/19 10:00 Interval history: Ms. Pereyra is an 84yo F admitted with small bowel obstruction. She tells me this morning she is not feeling well. She feels nauseous this morning with some right-sided abdominal pain. Last BM was yesterday. She denies chest pain, cough, or shortness of breath. Review of Systems Review of Systems: Narrative: Twelve systems were reviewed with pertinent positives and negatives as per HPI. Exam Narrative: Exam Narrative: General: Ill-appearing female resting supine in bed. HEENT: Normocephalic, EOMI, oral mucosa moist. Cardiovascular: Rate and rhythm are regular. Respiratory: Lungs clear to auscultation all navarro. Non-labored breathing. Abdomen: Soft, right-sided tenderness to palpation without guarding, few high pitched bowel sounds. Extremities: Peripheral pulses intact. No edema or erythema. 2 cm callus to plantar aspect right foot. Neuro: No focal neurological deficits appreciated. Speech is clear. Objective Data Vital Signs Vital Signs: Last Vital Signs Temp 97 F L 11/10/19 05:58 Pulse 84 11/10/19 08:00 Resp 20 11/10/19 08:00 BP 114/51 L 11/10/19 05:58 Pulse Ox 97 11/10/19 08:00 Intake/Output Intake/Output: Intake & Output 11/07/19 11/08/19 11/09/19 11/10/19 23:59 23:59 23:59 23:59 Intake Total 1778 1822 Output Total 100 300 Balance 1678 1522 Meds/Results Medications: Active Medications Generic Name Dose Route Start Last Admin Trade Name Freq PRN Reason Stop Dose Admin Bisacodyl 10 mg 11/10/19 09:03 11/10/19 09:30 Dulcolax Suppository RECTAL 10 mg QAM PRN Administration Constipation Dextrose 12.5 gm 11/09/19 20:17 Dextrose 50% Syringe IV PUSH PRN PRN Hypoglycemia Protocol Glucagon 1 mg 11/09/19 20:17 Glucagon For Inj IM PRN PRN Hypoglycemia Protocol Glucose 15 gm 11/09/19 20:17 Glutose 15 PO PRN PRN Hypoglycemia Protocol Sodium Chloride 1,000 mls @ 100 mls/hr 11/09/19 14:20 11/10/19 09:30 Normal Saline Iv IV CONT 100 mls/hr .Q10H ERIKA Administration Dextrose 1,000 mls @ 100 mls/hr 11/09/19 20:17 Dextrose 5% 1,000 Ml IVPB PRN PRN Hypoglycemia
[2019-11-10 11:38] LABS: Glucose Point of Care 138 (65-105)
[2019-11-10] MEDS: METOCLOPRAMIDE HCL INJ 10 MG/2 ML VIAL 5 MG IV PUSH ×2 (12:52→17:27)
[2019-11-10 17:36] LABS: Glucose Point of Care 129 (65-105)
[2019-11-11] MEDS: METOCLOPRAMIDE HCL INJ 10 MG/2 ML VIAL 5 MG IV PUSH ×4 (00:07→17:28)
[2019-11-11 00:11] LABS: Glucose Point of Care 153 (65-105)
[2019-11-11] MEDS: MORPHINE SULFATE 2 MG/ML INJ IV PUSH (00:57)
[2019-11-11] MEDS: SODIUM CHLORIDE 0.9% IV 1,000 ML 100 ML IV CONT (05:51)
[2019-11-11 05:57] VITALS: BP 113/46; PULSE 79; RESP 20; TEMP 36.1; O2SAT 95
[2019-11-11 06:09] LABS: Basophils Absolute Auto 0.1 K/mm3 (0.0-0.1); Basophils Percent Auto 0.4 % (0.2-1.2); Eosinophils Percent Auto 0.2 % (0-4.4); Hematocrit 36.1 % (37.0-47.0); Hemoglobin 10.4 g/dL (12.0-15.0); Immature Granulocyte Absolute 0.09 K/mm3 (0.00-0.031); Immature Granulocyte Percent A 0.6 % (0-0.5); Lymphocytes Absolute Auto 1.04 K/mm3 (0.9-3.2); Lymphocytes Percent Auto 6.4 % (18.3-44.2); Mean Corpuscular HGB Conc 28.8 g/dl (32-36); Mean Corpuscular Hemoglobin 27.5 pg (26-34); Mean Corpuscular Volume 95.5 fl (80-100); Mean Platelet Volume 10.5 fl (7.4-10.4); Monocytes Absolute Auto 1.1 K/mm3 (0.1-0.6); Monocytes Percent Auto 6.6 % (2.6-8.5); Neutrophils Absolute Auto 13.9 K/mm3 (1.3-6.7); Neutrophils Percent Auto 85.8 % (45.5-73.1); Nucleated Red Blood Cells Perc 0.2 % (0.0-0.2); Platelet Count Result 244 k/mm3 (150-375); Red Blood Count 3.78 M/mm3 (4.2-5.4); Red Cell Distribution Width 24.8 % (11.5-14.5); White Blood Count 16.2 K/mm3 (4.5-10.0)
[2019-11-11 06:32] LABS: Blood Urea Nitrogen 49 mg/dL (7-17); Carbon Dioxide 27 mmol/L (22-30); Chloride 105 mmol/L (98-107); Estimated CRCL calculation 17 ml/min; Estimated Glomerular Filt Rate 20; Glucose 156 mg/dL (65-105); Potassium 4.5 mmol/L (3.4-5.0); Sodium 141 mmol/L (137-145)
[2019-11-11 06:50] LABS: Anisocytosis 1+ (NORMAL); Hypochromasia 1+ (NORMAL); Platelet Estimate Adequate (Adequate)
[2019-11-11 07:24] LABS: Glucose Point of Care 142 (65-105)
[2019-11-11] MEDS: PANTOPRAZOLE SODIUM IV 40 MG VIAL IV PUSH (08:30)
[2019-11-11 08:51] VITALS: O2SAT 95
--- NOTE | 2019-11-11 08:53 | PM.IMPN ---
Progress Note: A&P Assessment and Plan (1) Partial small bowel obstruction: Onset Date: ~11/08/19 Code(s): K56.600 - Partial intestinal obstruction, unspecified as to cause Status: Acute Assessment and Plan: History of bowel obstructions in the past, last hospitalization May 2019 improved with conservative therapy. Management per general surgery - appreciate input. Discussed case with Dr Parnell today and his plan for small bowel follow through today. Continue supportive care with antiemetics and pain control. (2) IDDM (insulin dependent diabetes mellitus): Onset Date: Unknown Code(s): E11.9 - Type 2 diabetes mellitus without complications; Z79.4 - rodent exterminator (current) use of insulin Status: Chronic Assessment and Plan: Hemoglobin A1c was 7.2% in May 2019. Insulin held due to NPO status; blood sugars are stable. Monitor with Accu-Cheks and cover with SSI. (3) Chronic kidney disease, stage 4 (severe): Onset Date: Unknown Code(s): N18.4 - Chronic kidney disease, stage 4 (severe) Status: Chronic Assessment and Plan: Renal function has varied over the last 6 month, appears stable. Continue IV hydration and monitor renal function. Avoid nephrotoxic agents. (4) Paroxysmal atrial fibrillation: Onset Date: Unknown Code(s): I48.0 - Paroxysmal atrial fibrillation Status: Chronic Assessment and Plan: Regular rhythm on auscultation. On digoxin at home which is currently held due to NPO status. Plan to resume oral digoxine when diet is started. Will monitor. Subjective Date/time seen: 11/11/19 08:30 Interval history: Ms. Pereyra is an 84yo F admitted with small bowel obstruction. She seems to be a bit more awake and talkative than yesterday. Abdominal pain improving. She denies nausea this morning. She reports dry mouth and sore throat related to NG tube. BM reportedly last evening. She notes feeling slightly short of breath having just walked back from the bathroom. Review of Systems Review of Systems: Narrative: Twelve systems were reviewed with pertinent positives and negatives as per HPI. Exam Narrative: Exam Narrative: General: Female resting supine in bed in no acute distress. HEENT: Normocephalic, EOMI, oral mucosa moist. Cardiovascular: Rate and rhythm are regular. Respiratory: Lungs clear to auscultation all navarro. Non-labored breathing. Abdomen: Soft, mild right-sided tenderness to palpation without guarding seems improved from yesterday, bowel sounds present. Extremities: Peripheral pulses intact. No edema or erythema. 2 cm callus to plantar aspect right foot. Neuro: No focal neurological deficits appreciated. Speech is clear. Objective Data Vital Signs Vital Signs: Last Vital Signs Temp 97 F L 11/11/19 05:57 Pulse 79 11/11/19 05:57 Resp 20 11/11/19 05:57 BP 113/46 L 11/11/19 05:57 Pulse Ox 95 11/11/19 08:51 Intake/Output Intake/Output: Intake & Output 11/08/19 11/09/19 11/10/19 11/11/19 23:59 23:59 23:59 23:59 Intake Total 1778 2822 1000 Output Total 100 1505 600 Balance 1678 1317 400 Meds/Results Medications: Active Medications Generic Name Dose Route Start Last Admin Trade Name Freq PRN Reason Stop Dose Admin Bisacodyl 10 mg 11/10/19 09:03 11/10/19 09:30 Dulcolax Suppository RECTAL 10 mg QAM PRN Administration Constipation Dextrose 12.5 gm 11/09/19 20:17 Dextrose 50% Syringe IV PUSH PRN PRN Hypoglycemia Protocol Glucagon 1 mg 11/09/19 20:17 Glucagon For Inj IM PRN PRN Hypoglycemia Protocol Glucose 15 gm 11/09/19 20:17 Glutose 15 PO PRN PRN Hypoglycemia Protocol Sodium Chloride 1,000 mls @ 75 mls/hr 11/09/19 14:20 11/11/19 08:24 Normal Saline Iv IV CONT 75 m
[2019-11-11] MEDS: PHENOL/SOD PHENO SPRAY CHERRY (*BKC) 1 SPRAY MUCOUS MEM ×2 (11:49→14:42)
[2019-11-11 12:44] LABS: Glucose Point of Care 135 (65-105)
[2019-11-11 14:27] VITALS: BP 128/65; PULSE 81; RESP 16; TEMP 36; O2SAT 100
--- NOTE | 2019-11-11 15:09 | PM.PNGS ---
Progress Note: A&P Assessment and Plan (1) Partial small bowel obstruction: Onset Date: ~11/08/19 Code(s): K56.600 - Partial intestinal obstruction, unspecified as to cause Status: Acute Assessment and Plan: Today's x-ray improved. The small-bowel follow-through with Gastrografin Showed mildly dilated central small bowel but no bowel obstruction with the dye reaching the colon in 1 hour and 30 minutes. NG tube has been pulled Will try clear liquids overnight and see how patient is tolerating it. Discussed with her that if this recurs in a short interval we may need to carefully plan an elective surgery to do a laparoscopic cholecystectomy and carefully inspect and lyse adhesions in the right lower quadrant of the abdomen. She understands and wishes to proceed with conservative management at this time period. (2) Paroxysmal atrial fibrillation: Onset Date: Unknown Code(s): I48.0 - Paroxysmal atrial fibrillation Status: Chronic Assessment and Plan: Cardiology following as an outpatient. Patient stated to me today that they are expecting the battery in her pacemaker/AID to run out sometime in the next year. (3) Chronic kidney disease, stage 4 (severe): Onset Date: Unknown Code(s): N18.4 - Chronic kidney disease, stage 4 (severe) Status: Chronic Assessment and Plan: Labs being followed (4) Anemia of chronic disease: Onset Date: Unknown Code(s): D63.8 - Anemia in other chronic diseases classified elsewhere Status: Acute Assessment and Plan: Labs being followed (5) IDDM (insulin dependent diabetes mellitus): Onset Date: Unknown Code(s): E11.9 - Type 2 diabetes mellitus without complications; Z79.4 - [facility]termin[facility] [employer] (current) use of insulin Status: Chronic Assessment and Plan: Hospitalist service following this problem. Additional Plan Will need most meds IV for today. Hopefully will start diet tomorrow if improves and home meds can be restarted.. Subjective Subjective Date/Time Seen: 11/11/19 15:09 Patient states her stomach still feels slightly full no significant abdominal pain. Tolerated the upper GI study well. NG tube is now out. She wants to try some liquids. She thanked me for not operating on her immediately. Review of Systems Constitutional: Constitutional: Reports as per HPI, Reports no additional constitutional complaints, Denies chills, Denies excessive sweating, Denies fatigue, Denies fever(s), Denies headache(s) and Denies weakness Eyes: Eyes: Denies change in vision and Denies loss of vision ENT: Denies dysphagia, Denies dizziness, Denies headache(s) and Reports other (Mucous Membranes moist.) Cardiovascular: Cardiovascular: Denies chest pain, Denies syncope, Denies leg edema, Denies lightheadedness, Denies radiating jaw, neck or arm pain and Denies dyspnea Respiratory: Respiratory: Denies cough, Denies pain on inspiration, Denies dyspnea and Denies wheezing Musculoskeletal: Musculoskeletal: Denies deformity, Denies joint swelling, Denies radiating pain into limb, Denies tingling and Reports other (No calf swelling or edema) Integumentary/Breasts: Skin/Breast: Reports system reviewed and no additional complaints, except as docu, Denies pruritus, Denies wounds and Denies jaundice Neurologic: Denies dizziness, Denies syncope, Denies headache(s), Denies loss of vision, Denies tingling, Denies tremor(s) and Denies weakness Psychiatric: Psychiatric: Denies anxiety and Denies depression Endocrine: Endocrine: Denies cold intolerance, Denies excessive sweating, Denies fatigue and Denies heat intolerance Hematologic/Lymphatic: Hematologic/Lymphatic: Denies easy bleeding and Denies easy bruising Allergic/Immunologic: Allergic/Immunologic: Denies wheezing Exam Const: General: cooperative, comfortable, no acute distress, alert and awake Nutritional Appearance: average body habitus Orientation/cons
[2019-11-11 17:37] LABS: Glucose Point of Care 147 (65-105)
[2019-11-11] MEDS: SODIUM CHLORIDE 0.9% IV 1,000 ML 75 ML IV CONT (18:43)
[2019-11-11 20:00] VITALS: PULSE 81; RESP 16; O2SAT 100
[2019-11-11] MEDS: TRAZODONE HCL 50 MG TABLET 100 MG PO (21:04)
[2019-11-11 21:11] LABS: Glucose Point of Care 112 (65-105)
[2019-11-11 22:00] VITALS: BP 97/46; PULSE 77; RESP 16; TEMP 35.9; O2SAT 98
[2019-11-12] VITALS (7 sets, daily range): BP systolic 108–125; BP diastolic 50–97; PULSE 60–82; RESP 18–21; TEMP 35.7–36.6; O2SAT 94–100
[2019-11-12] MEDS: METOCLOPRAMIDE HCL INJ 10 MG/2 ML VIAL 5 MG IV PUSH ×5 (00:08→23:44)
[2019-11-12] MEDS: PHENOL/SOD PHENO SPRAY CHERRY (*BKC) 1 SPRAY MUCOUS MEM (02:48)
[2019-11-12 05:53] LABS: Basophils Percent Auto 0.3 % (0.2-1.2); Eosinophils Absolute Auto 0.2 K/mm3 (0-0.3); Eosinophils Percent Auto 1.6 % (0-4.4); Hematocrit 31.5 % (37.0-47.0); Hemoglobin 9.6 g/dL (12.0-15.0); Immature Granulocyte Absolute 0.08 K/mm3 (0.00-0.031); Immature Granulocyte Percent A 0.8 % (0-0.5); Lymphocytes Percent Auto 7.8 % (18.3-44.2); Mean Corpuscular HGB Conc 30.5 g/dl (32-36); Mean Corpuscular Hemoglobin 28.1 pg (26-34); Mean Corpuscular Volume 92.1 fl (80-100); Mean Platelet Volume 10.7 fl (7.4-10.4); Monocytes Percent Auto 9.5 % (2.6-8.5); Neutrophils Absolute Auto 8.2 K/mm3 (1.3-6.7); Nucleated Red Blood Cells Absolute Auto 0.1 K/mm3 (0.0-0.012); Nucleated Red Blood Cells Perc 0.6 % (0.0-0.2); Platelet Count Result 185 k/mm3 (150-375); Red Blood Count 3.42 M/mm3 (4.2-5.4); Red Cell Distribution Width 24.1 % (11.5-14.5); White Blood Count 10.2 K/mm3 (4.5-10.0)
[2019-11-12 05:55] LABS: Alanine Aminotransferase 10 U/L (4-35); Albumin Level 3.4 g/dL (3.5-5.1); Alkaline Phosphatase 76 U/L (38-126); Aspartate Amino Transferase 18 U/L (14-36); Bilirubin,Total 0.7 mg/dL (0.2-1.3); Blood Urea Nitrogen 51 mg/dL (7-17); Calcium 7.6 mg/dL (8.4-10.2); Carbon Dioxide 26 mmol/L (22-30); Chloride 104 mmol/L (98-107); Estimated CRCL calculation 18 ml/min; Estimated Glomerular Filt Rate 20; Glucose 137 mg/dL (65-105); Potassium 4.5 mmol/L (3.4-5.0); Sodium 137 mmol/L (137-145)
[2019-11-12 07:36] LABS: Glucose Point of Care 144 (65-105)
[2019-11-12] MEDS: LEVALBUTEROL HFA (*SP) 15 GM INHALER 2 PUFF INHALATION ×3 (08:50→19:09)
[2019-11-12] MEDS: SODIUM CHLORIDE 0.9% IV 1,000 ML 75 ML IV CONT (08:53)
--- NOTE | 2019-11-12 09:14 | PM.IMPN ---
Progress Note: A&P Assessment and Plan (1) Partial small bowel obstruction: Onset Date: ~11/08/19 Code(s): K56.600 - Partial intestinal obstruction, unspecified as to cause Status: Acute Assessment and Plan: History of bowel obstructions in the past, last hospitalization May 2019 improved with conservative therapy. Management per general surgery - appreciate input. NG is out today. Continue supportive care with antiemetics and pain control. (2) IDDM (insulin dependent diabetes mellitus): Onset Date: Unknown Code(s): E11.9 - Type 2 diabetes mellitus without complications; Z79.4 - [facility] (current) use of insulin Status: Chronic Assessment and Plan: Hemoglobin A1c was 7.2% in May 2019. Monitor with Accu-Cheks and cover with SSI. Blood sugars stable. (3) COPD (chronic obstructive pulmonary disease): Qualifiers: COPD type: unspecified COPD Qualified Code(s): J44.9 - Chronic obstructive pulmonary disease, unspecified Code(s): J44.9 - Chronic obstructive pulmonary disease, unspecified Status: Acute Assessment and Plan: Patient tells me she has COPD and takes combivent inhaler at home. She feels short of breath today. Repeat CXR shows atelectasis vs. pneumonia. Clinical picture not consistent with pneumonia, no cough or fever. SOB and hypoxia may be related to atelectasis. Ordered incentive spirometry; increase activity; Xopenex and spiriva. (4) Chronic kidney disease, stage 4 (severe): Onset Date: Unknown Code(s): N18.4 - Chronic kidney disease, stage 4 (severe) Status: Chronic Assessment and Plan: Renal function has varied over the last 6 month, appears stable. Stopped IV fluids and monitor renal function. Avoid nephrotoxic agents. (5) Paroxysmal atrial fibrillation: Onset Date: Unknown Code(s): I48.0 - Paroxysmal atrial fibrillation Status: Chronic Assessment and Plan: Regular rhythm on auscultation. Home digoxin resumed. Will monitor. Subjective Date/time seen: 11/12/19 0845 Interval history: Ms. Pereyra is an 84yo F admitted with small bowel obstruction. She reports feeling better today, abdominal pain improving. She describes a sore throat related to previous NG placement. NG tube out now. She reports some shortness of breath today. Review of Systems Review of Systems: Narrative: Twelve systems were reviewed with pertinent positives and negatives as per HPI. Exam Narrative: Exam Narrative: General: Female resting supine in bed in no acute distress. HEENT: Normocephalic, EOMI, oral mucosa moist. Cardiovascular: Rate and rhythm are regular. Respiratory: Lungs clear to auscultation all navarro. Non-labored breathing. Tolerating 2 L O2. Abdomen: Soft, mild right-sided tenderness to palpation without guarding, bowel sounds present. Extremities: Peripheral pulses intact. No edema or erythema. 2 cm callus to plantar aspect right foot. Neuro: No focal neurological deficits appreciated. Speech is clear. Objective Data Vital Signs Vital Signs: Last Vital Signs Temp 96.3 F L 11/12/19 06:00 Pulse 60 11/12/19 09:51 Resp 18 11/12/19 06:00 BP 108/56 L 11/12/19 06:00 Pulse Ox 99 11/12/19 09:50 Intake/Output Intake/Output: Intake & Output 11/09/19 11/10/19 11/11/19 11/12/19 23:59 23:59 23:59 23:59 Intake Total 1778 2822 2760 1240 Output Total 100 1505 1800 200 Balance 1678 0704 006 7468 Meds/Results Medications: Active Medications Generic Name Dose Route Start Last Admin Trade Name Freq PRN Reason Stop Dose Admin Bisacodyl 10 mg 11/10/19 09:03 11/10/19 09:30 Dulcolax Suppository RECTAL 10 mg QAM PRN Administration Constipation Colchicine 0.6 mg 11/12/19 09:00 Colchicine Po PO
[2019-11-12] MEDS: DIGOXIN TAB 125 MCG TABLET PO (09:51)
[2019-11-12] MEDS: COLCHICINE 0.6 MG TABLET PO ×2 (09:51→17:28)
[2019-11-12] MEDS: PANTOPRAZOLE SODIUM IV 40 MG VIAL IV PUSH (09:51)
[2019-11-12] MEDS: MAGNESIUM HYDROXIDE SUSP 30 ML UDC PO (09:51)
[2019-11-12 11:25] LABS: Glucose Point of Care 193 (65-105)
[2019-11-12] MEDS: BISACODYL 10 MG SUPPOSITORY RECTAL (12:11)
[2019-11-12] MEDS: MONTELUKAST SODIUM 10 MG TABLET PO (17:28)
[2019-11-12 17:40] LABS: Glucose Point of Care 153 (65-105)
--- NOTE | 2019-11-12 17:57 | PM.PNGS ---
Progress Note: A&P Assessment and Plan (1) Partial small bowel obstruction: Onset Date: ~11/08/19 Code(s): K56.600 - Partial intestinal obstruction, unspecified as to cause Status: Acute Assessment and Plan: Today's x-ray improved. The small-bowel follow-through yesterday with Gastrografin showed mildly dilated central small bowel but no bowel obstruction with the dye reaching the colon in 1 hour and 30 minutes. NG tube has been pulled She tried clear liquids overnight and feels blaated but not nauseated. Discussed with her that if this recurs in a short interval we may need to carefully plan an elective surgery to do a laparoscopic cholecystectomy and carefully inspect and lyse adhesions in the right lower quadrant of the abdomen. She understands and wishes to proceed with conservative management at this time period. (2) Paroxysmal atrial fibrillation: Onset Date: Unknown Code(s): I48.0 - Paroxysmal atrial fibrillation Status: Chronic Assessment and Plan: Cardiology following as an outpatient. Patient stated to me today that they are expecting the battery in her pacemaker/AID to run out sometime in the next year. (3) Chronic kidney disease, stage 4 (severe): Onset Date: Unknown Code(s): N18.4 - Chronic kidney disease, stage 4 (severe) Status: Chronic Assessment and Plan: Labs being followed. BUN and creatinine slightly better than admission. (4) Anemia of chronic disease: Onset Date: Unknown Code(s): D63.8 - Anemia in other chronic diseases classified elsewhere Status: Acute Assessment and Plan: Labs being followed (5) IDDM (insulin dependent diabetes mellitus): Onset Date: Unknown Code(s): E11.9 - Type 2 diabetes mellitus without complications; Z79.4 - intermediate (current) use of insulin Status: Chronic Assessment and Plan: Hospitalist service following this problem. Additional Plan Will need most meds IV for today. Hopefully will start to tolerate diet better tomorrow and if improves then home meds can be restarted. recommending continuing clear liquids overnight. Would recommend CBC and BMP recheck in a.m. and see if we can advance diet tomorrow. Subjective Subjective Date/Time Seen: 11/12/19 17:57 Patient is somewhat emotionally upset today. She feels like her abdomen is somewhat bloated. She has however now had 3 bowel movements the 1st 1 stimulated by a suppository. The last 2 of been fairly loose. Review of Systems Constitutional: Constitutional: Reports as per HPI, Reports no additional constitutional complaints, Reports body ache(s), Denies chills, Denies excessive sweating, Denies fatigue, Denies fever(s), Denies headache(s) and Denies weakness Comments: States she feels like her abdomen pushes up on her chest and makes it more difficult to breathe. Eyes: Eyes: Denies change in vision and Denies loss of vision ENT: Denies dysphagia, Denies dizziness, Denies headache(s) and Reports other (Mucous Membranes moist.) Cardiovascular: Cardiovascular: Reports as per HPI, Denies chest pain, Denies syncope, Denies leg edema, Denies lightheadedness, Denies radiating jaw, neck or arm pain and Denies dyspnea Respiratory: Respiratory: Denies cough, Denies pain on inspiration, Denies dyspnea and Denies wheezing Musculoskeletal: Musculoskeletal: Denies deformity, Denies joint swelling, Denies radiating pain into limb, Denies tingling and Reports other (No calf swelling or edema) Integumentary/Breasts: Skin/Breast: Reports system reviewed and no additional complaints, except as docu, Denies pruritus, Denies wounds and Denies jaundice Neurologic: Denies dizziness, Denies syncope, Denies headache(s), Denies loss of vision, Denies tingling, Denies tremor(s) and Denies weakness Endocrine: Endocrine: Denies cold intolerance, Denies excessive sweating, Denies fatigue and Denies heat intolerance Hematologic/Lympha
[2019-11-12] MEDS: TRAZODONE HCL 50 MG TABLET 100 MG PO (21:09)
[2019-11-12] MEDS: ESCITALOPRAM OXALATE 10 MG TABLET 20 MG PO (21:09)
[2019-11-12 21:31] LABS: Glucose Point of Care 150 (65-105)
[2019-11-13] MEDS: LEVALBUTEROL HFA (*SP) 15 GM INHALER 2 PUFF INHALATION ×4 (01:42→19:25)
[2019-11-13 05:14] VITALS: BP 120/63; PULSE 81; RESP 16; TEMP 35.9; O2SAT 98
[2019-11-13 05:18] LABS: Blood Urea Nitrogen 52 mg/dL (7-17); Calcium 8.3 mg/dL (8.4-10.2); Carbon Dioxide 26 mmol/L (22-30); Chloride 103 mmol/L (98-107); Estimated CRCL calculation 21 ml/min; Estimated Glomerular Filt Rate 25; Glucose 173 mg/dL (65-105); Magnesium 3.4 mg/dL (1.6-2.3); Phosphorus 4.2 mg/dL (2.5-4.5); Potassium 4.7 mmol/L (3.4-5.0); Sodium 136 mmol/L (137-145)
[2019-11-13] MEDS: METOCLOPRAMIDE HCL INJ 10 MG/2 ML VIAL 5 MG IV PUSH (06:07)
[2019-11-13 07:42] LABS: Glucose Point of Care 164 (65-105)
[2019-11-13 07:55] VITALS: O2SAT 87
[2019-11-13 08:16] LABS: Basophils Percent Auto 0.4 % (0.2-1.2); Eosinophils Absolute Auto 0.1 K/mm3 (0-0.3); Eosinophils Percent Auto 1.3 % (0-4.4); Hematocrit 33.9 % (37.0-47.0); Hemoglobin 10.1 g/dL (12.0-15.0); Immature Granulocyte Absolute 0.05 K/mm3 (0.00-0.031); Immature Granulocyte Percent A 0.5 % (0-0.5); Lymphocytes Absolute Auto 0.91 K/mm3 (0.9-3.2); Lymphocytes Percent Auto 9.6 % (18.3-44.2); Mean Corpuscular HGB Conc 29.8 g/dl (32-36); Mean Corpuscular Hemoglobin 28.2 pg (26-34); Mean Corpuscular Volume 94.7 fl (80-100); Mean Platelet Volume 11.1 fl (7.4-10.4); Monocytes Percent Auto 10.6 % (2.6-8.5); Neutrophils Absolute Auto 7.4 K/mm3 (1.3-6.7); Neutrophils Percent Auto 77.6 % (45.5-73.1); Nucleated Red Blood Cells Perc 0.3 % (0.0-0.2); Platelet Count Result 212 k/mm3 (150-375); Red Blood Count 3.58 M/mm3 (4.2-5.4); Red Cell Distribution Width 24.1 % (11.5-14.5); White Blood Count 9.5 K/mm3 (4.5-10.0)
[2019-11-13 08:29] VITALS: PULSE 81
[2019-11-13] MEDS: COLCHICINE 0.6 MG TABLET PO ×2 (08:29→17:12)
[2019-11-13] MEDS: PANTOPRAZOLE SODIUM IV 40 MG VIAL IV PUSH (08:29)
[2019-11-13] MEDS: DIGOXIN TAB 125 MCG TABLET PO (08:29)
[2019-11-13 09:00] LABS: Hypochromasia 1+ (NORMAL); Ovalocytes 1+ (NORMAL); Platelet Estimate Adequate (Adequate)
--- NOTE | 2019-11-13 09:01 | PM.PNGS ---
Progress Note: A&P Assessment and Plan (1) Partial small bowel obstruction: Onset Date: ~11/08/19 Code(s): K56.600 - Partial intestinal obstruction, unspecified as to cause Status: Acute Assessment and Plan: The small-bowel follow-through Saturday with Gastrografin showed mildly dilated central small bowel but no bowel obstruction with the dye reaching the colon in 1 hour and 30 minutes. She tried to eat a full liquid breakfast today and didn't eat much, but not nauseated. Plan will be to gradually advance the diet through the weekend. I also will have her take MiraLax once a day routinely. Discussed with her that if this recurs in a short interval we may need to carefully plan an elective surgery to do a laparoscopic cholecystectomy and carefully inspect and lyse adhesions in the right lower quadrant of the abdomen. She understands and wishes to proceed with conservative management at this time period. (2) Paroxysmal atrial fibrillation: Onset Date: Unknown Code(s): I48.0 - Paroxysmal atrial fibrillation Status: Chronic Assessment and Plan: Cardiology following as an outpatient. Patient stated to me that they are expecting the battery in her pacemaker/AID to run out sometime in the next year. (3) Chronic kidney disease, stage 4 (severe): Onset Date: Unknown Code(s): N18.4 - Chronic kidney disease, stage 4 (severe) Status: Chronic Assessment and Plan: Labs being followed. BUN up today, creatinine slightly better than admission. (4) Anemia of chronic disease: Onset Date: Unknown Code(s): D63.8 - Anemia in other chronic diseases classified elsewhere Status: Acute Assessment and Plan: Labs being followed (5) IDDM (insulin dependent diabetes mellitus): Onset Date: Unknown Code(s): E11.9 - Type 2 diabetes mellitus without complications; Z79.4 - [facility] (current) use of insulin Status: Chronic Assessment and Plan: Hospitalist service following this problem. Additional Plan Hopefully will start to tolerate diet better today and if improves then home meds can be restarted. Question with the crackles in the bases posteriorly whether she may benefit from 1 dose of IV Lasix. CBC and BMP recheck in a.m. and see if we can advance diet tomorrow. I will change IV Reglan and that is scheduled to AC and HS p.o. Other things I thought of that may help the patient is a nasal decongestant, some respiratory treatments, and encouragement with the incentive spirometry since breathing and her changes on chest x-ray may be the more concerning thing right now. Subjective Subjective Date/Time Seen: 11/13/19 09:01 Patient is sitting up in the chair when I entered the room. She states that she has trouble breathing through her nose today. Denies abdominal pain. Has had about 5 bowel movements since this time yesterday. Feels that her abdomen is back to average or normal. States that she feels her main problem is breathing right now. She seems less emotional today than yesterday. Review of Systems Constitutional: Constitutional: Reports as per HPI, Reports no additional constitutional complaints, Reports body ache(s), Denies chills, Denies excessive sweating, Denies fatigue, Denies fever(s), Denies headache(s) and Denies weakness Eyes: Eyes: Denies change in vision and Denies loss of vision ENT: Denies dysphagia, Denies dizziness, Denies headache(s), Reports nasal congestion ( States she feels like she can't breathe through her nose.) and Reports other (Mucous Membranes moist.) Cardiovascular: Cardiovascular: Reports as per HPI, Denies chest pain, Denies syncope, Denies leg edema, Denies lightheadedness, Denies radiating jaw, neck or arm pain and Denies dyspnea Respiratory: Respiratory: Denies cough, Denies pain on inspiration, Denies dyspnea and Denies wheezing Gastrointestinal: Gastrointestinal: Reports as per HPI and
--- NOTE | 2019-11-13 09:29 | PM.IMPN ---
Progress Note: A&P Assessment and Plan (1) Partial small bowel obstruction: Onset Date: ~11/08/19 Code(s): K56.600 - Partial intestinal obstruction, unspecified as to cause Status: Acute Assessment and Plan: History of bowel obstructions in the past, last hospitalization May 2019 improved with conservative therapy. Management per general surgery - appreciate input. NG is out. Continue supportive care with antiemetics and pain control. (2) IDDM (insulin dependent diabetes mellitus): Onset Date: Unknown Code(s): E11.9 - Type 2 diabetes mellitus without complications; Z79.4 - intermission coordinator (current) use of insulin Status: Chronic Assessment and Plan: Hemoglobin A1c was 7.2% in May 2019. Monitor with Accu-Cheks and cover with SSI. Blood sugars stable. (3) COPD (chronic obstructive pulmonary disease): Qualifiers: COPD type: unspecified COPD Qualified Code(s): J44.9 - Chronic obstructive pulmonary disease, unspecified Code(s): J44.9 - Chronic obstructive pulmonary disease, unspecified Status: Acute Assessment and Plan: Patient tells me she has COPD and takes combivent inhaler at home. She feels short of breath today and describes she has scabs in her nose from the NG and does not want to breathe through her nose. Repeat CXR shows atelectasis vs. pneumonia. Clinical picture not consistent with pneumonia, no cough or fever. SOB and hypoxia may be related to atelectasis. Ordered incentive spirometry; increase activity; Xopenex and spiriva. IV Lasix x 1. (4) Chronic kidney disease, stage 4 (severe): Onset Date: Unknown Code(s): N18.4 - Chronic kidney disease, stage 4 (severe) Status: Chronic Assessment and Plan: Renal function has varied over the last 6 month, appears stable. Stopped IV fluids and monitor renal function. Avoid nephrotoxic agents. (5) Paroxysmal atrial fibrillation: Onset Date: Unknown Code(s): I48.0 - Paroxysmal atrial fibrillation Status: Chronic Assessment and Plan: Regular rhythm on auscultation. Continue home digoxin. Will monitor. Subjective Date/time seen: 11/13/19 0815 Interval history: Ms. Pereyra is an 84yo F admitted with small bowel obstruction. She describes her nose is sore from when the NG was in and feels like that is causing her to breathe through her mouth. She denies abdominal pain. BMs yesterday. Attempting to eat some full liquid breakfast during my encounter. Won't talk to me much, withdrawn. Review of Systems Review of Systems: Narrative: Twelve systems were reviewed with pertinent positives and negatives as per HPI. Exam Narrative: Exam Narrative: General: Female resting sitting up in bedside chair in no acute distress. Affect is flat. HEENT: Normocephalic, EOMI, oral mucosa moist. Cardiovascular: Rate and rhythm are regular. Respiratory: Lungs clear to auscultation all navarro. Non-labored breathing. Tolerating 2 L O2. Abdomen: Soft, nontender, bowel sounds hypoactive. Extremities: Peripheral pulses intact. No edema or erythema. 2 cm callus to plantar aspect right foot. Neuro: No focal neurological deficits appreciated. Speech is clear. Objective Data Vital Signs Vital Signs: Last Vital Signs Temp 96.6 F L 11/13/19 05:14 Pulse 81 11/13/19 08:29 Resp 16 11/13/19 05:14 BP 120/63 11/13/19 05:14 Pulse Ox 87 L 11/13/19 07:55 Intake/Output Intake/Output: Intake & Output 11/10/19 11/11/19 11/12/19 11/13/19 23:59 23:59 23:59 23:59 Intake Total 2822 2760 1921 200 Output Total 1505 1800 200 Balance 9226 657 9579 200 Meds/Results Medications: Active Medications Generic Name Dose Route Start Last Admin Trade Name Freq PRN Reason Stop Dose Admin Bisacodyl 10 mg
--- NOTE | 2019-11-13 10:12 | PC.NURSE ---
MAR edits made to correct name of nurse who administered from Cora Iyer to Nerissa Robles
[2019-11-13] MEDS: SALINE 0.65% NAS SOLN 44 ML BTL 1 SPRAY NASAL ×3 (10:58→20:28)
[2019-11-13 11:29] LABS: Glucose Point of Care 158 (65-105)
[2019-11-13 14:00] VITALS: BP 125/59; PULSE 79; RESP 30; TEMP 36.6; O2SAT 99
[2019-11-13] MEDS: FUROSEMIDE INJ 40 MG/4 ML VIAL 20 MG IV PUSH (14:08)
[2019-11-13 16:27] LABS: Glucose Point of Care 157 (65-105)
[2019-11-13] MEDS: MONTELUKAST SODIUM 10 MG TABLET PO (17:12)
[2019-11-13 19:25] VITALS: O2SAT 90
[2019-11-13] MEDS: TRAZODONE HCL 50 MG TABLET 100 MG PO (20:28)
[2019-11-13] MEDS: ESCITALOPRAM OXALATE 10 MG TABLET 20 MG PO (20:28)
[2019-11-13 21:35] VITALS: BP 118/52; PULSE 81; RESP 20; TEMP 36.1; O2SAT 99
[2019-11-13 23:46] LABS: Glucose Point of Care 182 (65-105)
[2019-11-14] VITALS (8 sets, daily range): BP systolic 104–123; BP diastolic 58–80; PULSE 78–80; RESP 20–22; TEMP 35.9–36.6; O2SAT 95–98
[2019-11-14] MEDS: LEVALBUTEROL HFA (*SP) 15 GM INHALER 2 PUFF INHALATION ×4 (01:32→19:38)
[2019-11-14 07:10] LABS: Blood Urea Nitrogen 46 mg/dL (7-17); Calcium 7.8 mg/dL (8.4-10.2); Carbon Dioxide 26 mmol/L (22-30); Chloride 105 mmol/L (98-107); Estimated CRCL calculation 23 ml/min; Estimated Glomerular Filt Rate 29; Glucose 158 mg/dL (65-105); Magnesium 3.1 mg/dL (1.6-2.3); Phosphorus 3.7 mg/dL (2.5-4.5); Potassium 4.7 mmol/L (3.4-5.0); Sodium 137 mmol/L (137-145)
[2019-11-14 07:46] LABS: Glucose Point of Care 154 (65-105)
[2019-11-14] MEDS: COLCHICINE 0.6 MG TABLET PO ×2 (08:40→16:48)
[2019-11-14] MEDS: DIGOXIN TAB 125 MCG TABLET PO (08:40)
[2019-11-14] MEDS: PANTOPRAZOLE 40 MG TABLET PO (08:40)
[2019-11-14] MEDS: polyethylene glycoL 3350 17 GM POWD.PACK PO (08:41)
[2019-11-14] MEDS: SALINE 0.65% NAS SOLN 44 ML BTL 1 SPRAY NASAL (08:44)
--- NOTE | 2019-11-14 10:40 | PCPTNOTE ---
Attempted to see patient for PT, however patient refused due to just getting back in bed with nursing and reports she wants to rest at this time.
--- NOTE | 2019-11-14 10:55 | PM.IMPN ---
Progress Note: A&P Assessment and Plan (1) Partial small bowel obstruction: Onset Date: ~11/08/19 Code(s): K56.600 - Partial intestinal obstruction, unspecified as to cause Status: Acute Assessment and Plan: History of bowel obstructions in the past, last hospitalization May 2019 improved with conservative therapy. Management per general surgery - appreciate input. NG is out. She is doing well with full liquids, increased to low fat diet. Continue supportive care with antiemetics and pain control as needed. (2) IDDM (insulin dependent diabetes mellitus): Onset Date: Unknown Code(s): E11.9 - Type 2 diabetes mellitus without complications; Z79.4 - [facility] (current) use of insulin Status: Chronic Assessment and Plan: Hemoglobin A1c was 7.2% in May 2019. Monitor with Accu-Cheks and cover with SSI. Blood sugars stable. (3) COPD (chronic obstructive pulmonary disease): Qualifiers: COPD type: unspecified COPD Qualified Code(s): J44.9 - Chronic obstructive pulmonary disease, unspecified Code(s): J44.9 - Chronic obstructive pulmonary disease, unspecified Status: Acute Assessment and Plan: Patient tells me she has COPD and takes combivent inhaler at home. She feels short of breath today and describes she has scabs in her nose from the NG and does not want to breathe through her nose. Repeat CXR shows atelectasis vs. pneumonia. Clinical picture not consistent with pneumonia, no cough or fever. SOB and hypoxia may be related to atelectasis. Ordered incentive spirometry; increase activity; Xopenex and spiriva. [place] nasal spray and flonase, humidifier on O2. May need home O2 eval tomorrow. (4) Chronic kidney disease, stage 4 (severe): Onset Date: Unknown Code(s): N18.4 - Chronic kidney disease, stage 4 (severe) Status: Chronic Assessment and Plan: Renal function has varied over the last 6 month, appears stable and improved since arrival. Monitor renal function. Avoid nephrotoxic agents. (5) Paroxysmal atrial fibrillation: Onset Date: Unknown Code(s): I48.0 - Paroxysmal atrial fibrillation Status: Chronic Assessment and Plan: Regular rhythm on auscultation. Continue home digoxin. Will monitor. Subjective Date/time seen: 11/14/19 0900 Interval history: Ms. Pereyra is an 84yo F admitted with small bowel obstruction. She describes her nose is sore from when the NG was in and her main complaint today is trouble breathing through her nose. She thinks the ocean [place] is helping. She denies abdominal pain. Tolerating some full liquid breakfast during my encounter. Won't talk to me much, withdrawn. Review of Systems Review of Systems: Narrative: Twelve systems were reviewed with pertinent positives and negatives as per HPI. Exam Narrative: Exam Narrative: General: Female resting sitting up in bedside chair in no acute distress. Affect is flat, withdrawn. HEENT: Normocephalic, EOMI, oral mucosa moist, R nare with some crusted blood, L nare with swollen turbanates, oropharynx clear. Cardiovascular: Rate and rhythm are regular. Respiratory: Lungs clear to auscultation all navarro, slightly decreased on right. Non-labored breathing and no evidence of respiratory distress. Tolerating 2 L O2. Abdomen: Soft, nontender, bowel sounds present. Extremities: Peripheral pulses intact. No edema or erythema. 2 cm callus to plantar aspect right foot. Neuro: No focal neurological deficits appreciated. Speech is clear. Objective Data Vital Signs Vital Signs: Laboratory Tests 11/13/19 04:54 11/14/19 06:31 Intake/Output Intake/Output: Intake & Output 11/11/19 11/12/19 11/13/19 11/14/19 23:59 23:59 23:59 23:59 Intake Total 2760 1921 1000 100 Output [place]
[2019-11-14] MEDS: FLUTICASONE PROPIONATE 0.05% NA SPR 16 GM BTL (*BKC) 1 SPRAY NASAL ×2 (11:03→21:08)
[2019-11-14 11:41] LABS: Glucose Point of Care 181 (65-105)
--- NOTE | 2019-11-14 12:31 | PCPTNOTE ---
Attempted to see patient for PT, however patient declined due to eating lunch.
--- NOTE | 2019-11-14 13:04 | PM.PNGS ---
Progress Note: A&P Assessment and Plan (1) Partial small bowel obstruction: Onset Date: ~11/08/19 Code(s): K56.600 - Partial intestinal obstruction, unspecified as to cause Status: Acute Assessment and Plan: Advanced diet to low-fat diet today. Could probably be discharged tomorrow if she is tolerating this. Continue MiraLax. (2) Chronic kidney disease, stage 4 (severe): Onset Date: Unknown Code(s): N18.4 - Chronic kidney disease, stage 4 (severe) Status: Chronic (3) Paroxysmal atrial fibrillation: Onset Date: Unknown Code(s): I48.0 - Paroxysmal atrial fibrillation Status: Chronic Subjective Subjective Date/Time Seen: 11/14/19 13:04 Bowels moving. Patient complains of some intermittent nausea and bloating. Seems to be tolerating her diet without much difficulty. Mostly complains of trouble breathing through her nose. Exam GI: Inspection: non-distended GI Palp: Yes Soft to palpation and No Tenderness to palpation present (GI) Auscultation: normal bowel sounds Objective Data Vital Signs Vital Signs: Vital Signs - 24 hr 11/13/19 14:00 11/13/19 19:25 11/13/19 21:35 Temperature 36.6 C 36.1 C L Pulse Rate 79 81 Respiratory Rate 30 H 20 Blood Pressure 125/59 L 118/52 L Pulse Oximetry 99 90 99 11/14/19 06:00 11/14/19 08:00 11/14/19 08:40 Temperature 36.2 C L Pulse Rate 78 80 Respiratory Rate 22 H Blood Pressure 123/58 L Pulse Oximetry 98 97 11/14/19 09:13 Temperature Pulse Rate Respiratory Rate Blood Pressure Pulse Oximetry 95 Intake/Output Intake/Output: Intake & Output 11/11/19 11/12/19 11/13/19 11/14/19 23:59 23:59 23:59 23:59 Intake Total 2760 1921 1000 100 Output Total 1800 200 525 400 Balance 960 1721 475 -300 Meds/Results Medications: Active Medications Generic Name Dose Route Start Last Admin Trade Name Freq PRN Reason Stop Dose Admin Bisacodyl 10 mg 11/10/19 09:03 11/12/19 12:11 Dulcolax Suppository RECTAL 10 mg QAM PRN Administration Constipation Colchicine 0.6 mg 11/12/19 09:00 11/14/19 08:40 Colchicine Po PO 0.6 mg BID ERIKA Administration Dextrose 12.5 gm 11/09/19 20:17 Dextrose 50% Syringe IV PUSH PRN PRN Hypoglycemia Protocol Digoxin 125 mcg 11/12/19 09:00 11/14/19 08:40 Lanoxin Tab PO 125 mcg DAILY ERIKA Administration Escitalopram Oxalate 20 mg 11/12/19 21:00 11/13/19 20:28 Lexapro PO 20 mg HS ERIKA Administration Fluticasone Propionate 1 spray 11/14/19 09:25 11/14/19 11:03 Flonase 0.05% Nasal [place] NASAL 1 spray Q12HR ERIKA Administration Glucagon 1 mg 11/09/19 20:17 Glucagon For Inj IM PRN PRN Hypoglycemia Protocol Glucose 15 gm 11/09/19 20:17 Glutose 15 PO PRN PRN Hypoglycemia Protocol Dextrose 1,000 mls @ 100 mls/hr 11/09/19 20:17 Dextrose 5% 1,000 Ml IVPB PRN PRN Hypoglycemia Protocol Insulin Aspart 3 - 6 units 11/11/19 17:00 11/14/19 11:35 Novolog SUB-Q Not Given ACINSULIN [facility] Protocol Levalbuterol HCl 2 puff 11/12/19 14:00 11/14/19 09:11 Xopenex Hfa INHALATION 2 puff Q6HRT ERIKA Administration Melatonin 3 mg 11/12/19 19:44 Melatonin PO HS PRN Sleep Miconazole Nitrate 1 applic 11/10/19 09:00 11/14/19 08:41 Aloe [place] TOPICAL 1 applic Q12HR ERIKA Administration Montelukast Sodium 10 mg 11/12/19 17:00 11/13/19 17:12 Singulair PO 10 mg DAILY@1700 ERIKA Administration Morphine Sulfate 2 mg 11/09/19 14:20 11/11/19 00:57 Morphine Sulfate Inj IV PUSH 2 mg Q4HR PRN Administration Pain Rated 7-10 Pantoprazole Sodium 40 mg 11/14/19 09:00 11/14/19 08:40 Protonix PO 40 mg QAM ERIKA Administration Phenol 1 spray 11/11/19 08:37 11/12/19 02:48 Chloraseptic [place] MUCOUS MEM 1 spray PRN PRN Administration Sore Throat Polyethylene Glycol 17 gm
[2019-11-14 16:46] LABS: Glucose Point of Care 158 (65-105)
[2019-11-14] MEDS: MONTELUKAST SODIUM 10 MG TABLET PO (16:48)
[2019-11-14] MEDS: MORPHINE SULFATE 2 MG/ML INJ IV PUSH (19:00)
--- NOTE | 2019-11-14 20:18 | PC.NURSE ---
called Dr Robbins with results of KUB. He had already seen the results and ordered a obstructive series for 11/15/2019.
[2019-11-14] MEDS: ESCITALOPRAM OXALATE 10 MG TABLET 20 MG PO (21:07)
[2019-11-14] MEDS: MELATONIN 3 MG TABLET PO (21:08)
[2019-11-14] MEDS: TRAZODONE HCL 50 MG TABLET 100 MG PO (21:08)
[2019-11-14 21:15] LABS: Glucose Point of Care 180 (65-105)
[2019-11-15] VITALS (7 sets, daily range): BP systolic 134; BP diastolic 61; PULSE 77–90; RESP 22; TEMP 36.3; O2SAT 87–97
[2019-11-15] MEDS: LEVALBUTEROL HFA (*SP) 15 GM INHALER 2 PUFF INHALATION ×2 (01:14→08:00)
[2019-11-15 06:14] LABS: Blood Urea Nitrogen 40 mg/dL (7-17); Calcium 8.2 mg/dL (8.4-10.2); Carbon Dioxide 28 mmol/L (22-30); Chloride 103 mmol/L (98-107); Estimated CRCL calculation 25 ml/min; Estimated Glomerular Filt Rate 31; Glucose 159 mg/dL (65-105); Magnesium 3.1 mg/dL (1.6-2.3); Phosphorus 3.4 mg/dL (2.5-4.5); Potassium 4.5 mmol/L (3.4-5.0); Sodium 137 mmol/L (137-145)
--- NOTE | 2019-11-15 07:19 | PC.NURSE ---
Called pt's daughter at 2019 on 11/15/2019. Pt's daughter wanted to be called about the results of a stat ABD xray. No abnormal results reported. I encouraged the daughter to call and speak with the hospitalist during days. Pt's daughter wanted me to tell the pt a white lie and say she was going to come up to the hospital to see the pt and would also try to transfer the pt to [facility]. I told the pt's daughter that I cannot lie to my pt. I assured the family we would monitor and keep the pt comfortable.
[2019-11-15 07:52] LABS: Glucose Point of Care 162 (65-105)
[2019-11-15] MEDS: FLUTICASONE PROPIONATE 0.05% NA SPR 16 GM BTL (*BKC) 1 SPRAY NASAL (08:42)
[2019-11-15] MEDS: COLCHICINE 0.6 MG TABLET PO (08:42)
[2019-11-15] MEDS: DIGOXIN TAB 125 MCG TABLET PO (08:42)
[2019-11-15] MEDS: SALINE 0.65% NAS SOLN 44 ML BTL 1 SPRAY NASAL (08:42)
[2019-11-15] MEDS: polyethylene glycoL 3350 17 GM POWD.PACK PO (08:42)
[2019-11-15] MEDS: PANTOPRAZOLE 40 MG TABLET PO (08:42)
--- NOTE | 2019-11-15 09:53 | HOMEO2EVAL ---
Home Oxygen Evaluation RC: Home Oxygen (O2) Evaluation Start: 11/15/19 08:19 Freq: ONCE Status: Active Protocol: RPE Activity Type Activity Date Activity User E-Sign Co-Sign Detail Recorded Client Recorded Date Recorded By Document 11/15/19 09:25 CLC [email or web address] 11/15/19 09:47 CLC Document 11/15/19 09:30 CLC [email or web address] 11/15/19 09:50 CLC Document 11/15/19 09:35 [email or web address] [email or web address] 11/15/19 09:50 CLC Document 11/15/19 09:40 CLC [email or web address] 11/15/19 09:50 CLC 11/15/19 11/15/19 11/15/19 09:25 09:30 09:35 Home O2 Evaluation Test Phase Resting Resting Exercise Oxygen Delivery Room Air Nasal Cannula Nasal Cannula Oxygen Flow Rate (L/min) 2 2 Pulse Oximetry (90-100 %) 87 L 92 90 Pulse Rate (60-100 beats/min) 80 85 77 Activity Tolerance Fair Rating of Perceived Dyspnea (PD) +2 Mild, Some +2 Mild, Some +2 Mild, Some Difficulty, Difficulty, Difficulty, Noticeable to Noticeable to Noticeable to the Observer the Observer the Observer Ambulation Distance (feet) 50 Treatment Charges O2 Evaluation 11/15/19 09:40 Home O2 Evaluation Test Phase Resting Oxygen Delivery Nasal Cannula Oxygen Flow Rate (L/min) 2 Pulse Oximetry (90-100 %) 91 Pulse Rate (60-100 beats/min) 81 Activity Tolerance Rating of Perceived Dyspnea (PD) +2 Mild, Some Difficulty, Noticeable to the Observer Ambulation Distance (feet) Treatment Charges
--- NOTE | 2019-11-15 10:02 | PCRCNOTE ---
Pt. requires 2lpm o2. Faxed setup to [facility] [phone]
[2019-11-15 11:57] LABS: Glucose Point of Care 184 (65-105)
[2019-11-15] MEDS: BISACODYL 10 MG SUPPOSITORY RECTAL (12:23)
--- NOTE | 2019-11-15 12:30 | PM.PNGS ---
Progress Note: A&P Assessment and Plan (1) Partial small bowel obstruction: Onset Date: ~11/08/19 Code(s): K56.600 - Partial intestinal obstruction, unspecified as to cause Status: Resolved Assessment and Plan: Patient moving her bowels but still complaining of some distension and discomfort. Obstructive series shows normal bowel gas pattern. Okay to discharge from surgical standpoint. Consider medication GI side effects as a potential cause. Stimulate bowels as needed. She is already MiraLax, and have recommended a Dulcolax suppository today. Surgery to sign. (2) Chronic kidney disease, stage 4 (severe): Onset Date: Unknown Code(s): N18.4 - Chronic kidney disease, stage 4 (severe) Status: Chronic (3) Paroxysmal atrial fibrillation: Onset Date: Unknown Code(s): I48.0 - Paroxysmal atrial fibrillation Status: Chronic Subjective Subjective Date/Time Seen: 11/15/19 12:30 Patient still moving bowels. She was complaining of severe abdominal pain and distention last night. KUB showed nonobstructive bowel pattern. She is nauseated or vomiting. Exam GI: Inspection: other (Mildly distended) GI Palp: Yes Soft to palpation, No Tenderness to palpation present (GI), No Guarding due to palpation present (GI) and No Rebound tenderness present Auscultation: normal bowel sounds Objective Data Vital Signs Vital Signs: Vital Signs - 24 hr 11/14/19 14:00 11/14/19 20:00 11/14/19 22:00 Temperature 36.6 C 35.9 C L Pulse Rate 79 80 Respiratory Rate 22 H 20 Blood Pressure 115/60 104/80 Pulse Oximetry 98 98 98 11/14/19 23:16 11/15/19 06:00 11/15/19 08:05 Temperature 36.3 C L Pulse Rate 78 Respiratory Rate 22 H Blood Pressure 134/61 Pulse Oximetry 95 97 91 11/15/19 08:42 11/15/19 09:25 11/15/19 09:30 Temperature Pulse Rate 90 80 85 Respiratory Rate Blood Pressure Pulse Oximetry 87 L 92 11/15/19 09:35 11/15/19 09:40 Temperature Pulse Rate 77 81 Respiratory Rate Blood Pressure Pulse Oximetry 90 91 Intake/Output Intake/Output: Intake & Output 11/12/19 11/13/19 11/14/19 11/15/19 23:59 23:59 23:59 23:59 Intake Total 1921 1000 1060 150 Output Total 200 525 800 750 Balance 1721 475 260 -600 Meds/Results Medications: Active Medications Generic Name Dose Route Start Last Admin Trade Name Freq PRN Reason Stop Dose Admin Bisacodyl 10 mg 11/10/19 09:03 11/15/19 12:23 Dulcolax Suppository RECTAL 10 mg QAM PRN Administration Constipation Colchicine 0.6 mg 11/12/19 09:00 11/15/19 08:42 Colchicine Po PO 0.6 mg BID ERIKA Administration Dextrose 12.5 gm 11/09/19 20:17 Dextrose 50% Syringe IV PUSH PRN PRN Hypoglycemia Protocol Digoxin 125 mcg 11/12/19 09:00 11/15/19 08:42 Lanoxin Tab PO 125 mcg DAILY ERIKA Administration Escitalopram Oxalate 20 mg 11/12/19 21:00 11/14/19 21:07 Lexapro PO 20 mg HS ERIKA Administration Fluticasone Propionate 1 spray 11/14/19 09:25 11/15/19 08:42 Flonase 0.05% Nasal [place] NASAL 1 spray Q12HR ERIKA Administration Glucagon 1 mg 11/09/19 20:17 Glucagon For Inj IM PRN PRN Hypoglycemia Protocol Glucose 15 gm 11/09/19 20:17 Glutose 15 PO PRN PRN Hypoglycemia Protocol Dextrose 1,000 mls @ 100 mls/hr 11/09/19 20:17 Dextrose 5% 1,000 Ml IVPB PRN PRN Hypoglycemia Protocol Insulin Aspart 3 - 6 units 11/11/19 17:00 11/15/19 11:59 Novolog SUB-Q Not Given ACINSULIN ERIKA Protocol Levalbuterol HCl 2 puff 11/12/19 14:00 11/15/19 08:00 Xopenex Hfa INHALATION 2 puff Q6HRT ERIKA Administration Melatonin 3 mg 11/12/19 19:44 11/14/19 21:08 Melatonin PO 3 mg HS PRN Administration Sleep Miconazole Nitrate 1 applic 11/10/19 09:00 11/15/19 08:42 Aloe [place] TOPICAL 1 applic Q12HR ERIKA Administration Montelukast Sodium
[2019-11-15] MEDS: FUROSEMIDE INJ 40 MG/4 ML VIAL 20 MG IV PUSH (14:01)
[2019-11-15] MEDS: methylPREDNISolone SOD SUCC 125 MG VIAL IV PUSH (14:01)
--- NOTE | 2019-11-15 17:07 | PM.DS ---
DS: Diagnosis Admitting Diagnosis Admitting Diagnosis: Unspecified intestinal obstruction, unspecified as to partial versus complete obstruction Discharge Diagnosis (1) Partial small bowel obstruction: Onset Date: ~11/08/19 Code(s): K56.600 - Partial intestinal obstruction, unspecified as to cause Status: Resolved Assessment and Plan: Date of Service 11/15/19 Ms. Pereyra is an 84yo F with history of prior bowel obstructions treated conservatively, COPD, chronic kidney disease, type 2 DM, and paroxysmal atrial fibrillation who presented to the ED for evaluation of abdominal pain and vomiting. General surgery was consulted and she was evaluated by Dr Parnell. CT abdomen/pelvis showed distal partial bowel obstruction and gallstones/sludge. NG was placed to suction and she was treated with conservative measures with bowel rest, IV hydration, antiemetics and anagesics. Repeat imaging showed improvement and NG was removed. Once NG was removed, patient noted that her nose was sore. She described that she felt like she could not breathe through her nose because of scabs . Her R nare did have some dried blood and crusting, left turbanates edematous. Requiring 2L supplemental O2. Chext XR showed atelectasis vs. PNA. Clinically she does not appear to have pneumonia as she has no fevers or cough, and leukocytosis resovled after obstruction resolved with no abx treatment. It is felt she has atelectasis causing her hypoxia. She was educated on incentive spirometry and the importance of increasing activity, getting up and walking around. She was treated with ocean nasal spray, flonase, humidifier on O2 which she felt helped. She reported she felt short of breath because she could not breathe through her nose. She did have some mild wheezing day of discharge and was treated with a dose of IV solu-medrol to be followed by a tapered course of prednisone at discharge. She was treated with 2 one-time doses of IV lasix and restarted on her home diuretic therapy at discharge. Home oxygen evaluation found her to require 2L O2 and home setup was arranged. Her diet was advanced slowly over the weekend and she was maintained on a bowel regimen. She was advised to continue once daily Miralax and could take Miralax twice daily if she becomes constipated, or suppositories OTC. Dr Parnell described to her that if her symptoms should recur in a short interval he could consider surgical intervention (possible lap ruben and inspect adhesions) at that time. Abdominal XR day of discharge is unremarkable. Her insulin was held due to her dietary changes here while blood sugars were monitored closely. She was advised to start her home insulin regimen back up at a lower dose and monitor blood sugars closely until she is able to eat more. A fib was rate controlled with her home digoxin, stable. Ms. Pereyra was hemodymically stable for discharge 11/15/19 with plans to follow up with PCP in [address] Parnell as needed for further issues. (2) IDDM (insulin dependent diabetes mellitus): Onset Date: Unknown Code(s): E11.9 - Type 2 diabetes mellitus without complications; Z79.4 - termination clerk (current) use of insulin Status: Chronic Assessment and Plan: Hemoglobin A1c was 7.2% in May 2019. Monitor with Accu-Cheks and cover with SSI. Blood sugars stable. (3) COPD (chronic obstructive pulmonary disease): Qualifiers: COPD type: unspecified COPD Qualified Code(s): J44.9 - Chronic obstructive pulmonary disease, unspecified Code(s): J44.9 - Chronic obstructive pulmonary disease, unspecified Status: Acute Assessment and Plan: Patient tells me she has COPD and takes combivent inhaler at home. She feels short of breath today and describes she has scabs in her nose from the NG and does not want to breathe through her nose. Fred
== END 2019-11-15 14:57 | disposition home health service (06) | DRG 389 ==
LOC: ANHED 14:36 → ANH2MED 14:59
PROVIDERS: Family Medicine; Physician Assistant; Surgery; Admitting Provider Internal Medicine; Emergency Provider Emergency Medicine; PCP Internal Medicine; Visit Provider Internal Medicine
DX: K56.600 Partial intestinal obstruction, unspecified as to cause (principal); N18.4 Chronic kidney disease, stage 4 (severe); I50.42 Chronic combined systolic (congestive) and diastolic (congestive) heart failure; J98.11 Atelectasis; D63.8 Anemia in other chronic diseases classified elsewhere; E11.22 Type 2 diabetes mellitus with diabetic chronic kidney disease; E11.42 Type 2 diabetes mellitus with diabetic polyneuropathy; E86.0 Dehydration; I48.0 Paroxysmal atrial fibrillation; G47.33 Obstructive sleep apnea (adult) (pediatric); R09.02 Hypoxemia; J44.9 Chronic obstructive pulmonary disease, unspecified; K21.9 Gastro-esophageal reflux disease without esophagitis; Z79.4 Long term (current) use of insulin; Z79.899 Other long term (current) drug therapy; Z86.73 Personal history of transient ischemic attack (TIA), and cerebral infarction without residual deficits; Z87.891 Personal history of nicotine dependence; Z95.810 Presence of automatic (implantable) cardiac defibrillator; Z87.19 Personal history of other diseases of the digestive system
CPT/HCPCS: 36415; 51701; 71046; 74018; 74019; 74176; 74250; 80048; 80053; 80162; 81001; 82948; 83605; 83690; 83735; 84100; 85025; 85027; 94618; 94640; 96361; 96374; 96375; 96376; 97110; 97116; 97162; 97165; 97530; 97535; 99285; A9270; C9113; G0378; J0131; J1940; J2060; J2270; J2405; J2765; J2930; J7030; J7040

== ENCOUNTER 2020-01-12 10:15 | Outpatient (CLI) | payer MEDICARE, SELFPAY ==
[2020-01-12 10:56] LABS: Blood Urea Nitrogen 107 mg/dL (7-17); Calcium 7.3 mg/dL (8.4-10.2); Carbon Dioxide > 40 mmol/L (22-30); Chloride 74 mmol/L (98-107); Estimated Glomerular Filt Rate 20; Glucose 258 mg/dL (65-105); Potassium 3.4 mmol/L (3.4-5.0); Sodium 125 mmol/L (137-145)
== END 2020-01-12 10:16 | disposition home or self-care (01) ==
PROVIDERS: PCP Internal Medicine; Visit Provider Nurse Practitioner Adult Health
DX: I50.22 Chronic systolic (congestive) heart failure (principal)
CPT/HCPCS: 36415; 80048